=== PATIENT | female | born 1965 | race Hispanic/Latino ===

== ENCOUNTER 2020-07-31 18:03 | Inpatient (IN) | payer MEDICAID ==
[2020-07-31] MEDS ORDERED: MELATONIN 5 MG TAB PO PRN (18:20)
[2020-07-31] MEDS ORDERED: clonazePAM 0.5 MG TAB PO PRN (19:40)
[2020-07-31] MEDS ORDERED: traZODone 50 MG TAB PO SCH (22:00)
[2020-07-31] MEDS: traZODone 100 MG TAB PO SCH (23:22)
[2020-07-31] MEDS: MIRTAZAPINE 30 MG TAB PO SCH (23:22)
--- NOTE | 2020-08-01 08:16 | History and Physical Report ---
GP History & Physical - History of Present Illness Date of admission: 07/31/20 Date of Examination: 08/01/20 Reason for Admission: Danger to self, Failure of Outpatient Treatment History of Present Illness: Clint Sheridan is a 55y/o female patient who I initially treated on the medical floor, in which she was admitted for a florid UTI and hyponatremia. The patient initially presented to the ER from a [facility] with suicidal thoughts with plans to cut her wrist. It is documented that at that time the patient's counselor said she had been looking for razors to cut her wrist. The patient states she has been suffering depression for awhile, and misses her mother who about 6 years ago. The patient states she's always sad when thinking about her mother and states she feels like she's lost her father too because his health is not good. During my interview with the patient today, she is sitting in the dayroom off to herself. She is calm and cooperative. She is a/o x 3. She still verbalizes feeling depressed. The patient denies hallucinations when asked, but "not outside of my 's voice." She says she hears her husbands voice yelling at her and telling her she's "no good." The patient says "but I'll never be able to get rid of him. This has been on going with him." The patient expresses feeling suicidal and states she wants to cut her wrist. She denies any illicit drug use, or alcohol. The patient says she slept good and "still feels tired from all the medications last night." She says "I feel groggy as all get out." The patient states she uses nicotine but not everyday. She says she has a history of "bipolar and schizoafective disorder." PAST PSYCHIATRIC HISTORY Diagnoses: bipolar, schizoaffective disorder and multiple personality disorder Suicide attempts or Self-harm behavior: Yes multiple times Prior psychiatric hospitalizations: Yes Substance Abuse history: None reported Previous psychiatric medications tried: Multiple medication Outpatient treatment: [facility] PAST MEDICAL HISTORY: None reported Family Psychiatric History: None reported or documented SOCIAL HISTORY Marital Status: Living Arrangements: care home Employment Status: On SSI Access to guns/weapons: None reported Education: College dropout History of Abuse: None reported Legal History: Yes REVIEW OF SYSTEMS Constitutional: Negative for weight loss ENT: Negative for stridor Respiratory: Negative for cough or hemoptysis All other systems reviewed and are negative MENTAL STATUS EXAMINATION General Appearance and Behavior: Age appropriate, good hygiene, wearing appropriate clothes, good eye contact Cooperation: Participating/engaged Psychomotor Behavior: Psychomotor normal Mood: depressed Affect and affective range: Congruent with mood Thought Process: logical Thought Content: hopelessness Speech: Normal rate, volume and rhythm Suicidal Ideation: SI Homicidal Ideation: Denies HI Impulse Control: Impaired Insight and Judgment: Limited insight and judgment Memory: Normal Attention: Normal Orientation: Alert, oriented Assessment and Plan (1) MDD (major depressive disorder) Current Visit: Yes Status: Acute (2) Dysfunctional grieving Current Visit: Yes Status: Acute Treatment Plan Patient admitted for inpatient psychiatric evaluation, medication adjustment and close monitoring The patient's behavior, mood, sleep and appetite will be closely monitored. Patient enrolled in individual and group therapeutic sessions and encouraged to attend. Patient provided with a safe and structured environment. Patient's physical health needs will be addressed by the Hospitalist. Hospitalist Consulted Labs including CBC, CMP, Lipid profile and Hemoglobin A1C levels ordered for baseline reference Social Assessment will be completed and the Bottom Wheeler will work with patient and family to ensure a suitable and safe disposition Medication adjustment will be made as clinically indicated Hold home seroquel, the patient states she feels too groggy when waking up restart from floor Abilify 5mg po daily restart from floor Zoloft 50mg po daily Usual Wellness Religious/Preservation: - Start Trazodone 50 mg po QHS - Start Melatonin 5 mg po QHS to promote circadian rhythm - Start [place]-3 for brain health, reduce impulsivity, and as adjunctive treatment for mood disorder, continue upon discharge given overall benefits. - Start B1 prophylaxis with 200 mg po for 5 days The patient agreed on the treatment plan, understood the risk, benefit, alternative treatment, potential consequence of no treatment, and gave informed consent. Initial Certification I certify that the inpatient psychiatric services are required for treatment that could reasonably be expected to improve the patient's condition for depression, negative thoughts and suicidal ideation Estimated days: 7 Post hospital care: primary care provider, psychiatric provider The case was staffed with Dr. Aguilera Legal Status: Voluntary Reaction to Hospitalization: Accepting Medications and Allergies Allergies Allergy/AdvReac Type Severity Reaction Status Date / Time codeine Allergy Hives Verified 03/03/20 20:46 Penicillins Allergy Hives Verified 03/03/20 20:46 Home Medications Medication Instructions Recorded Confirmed Last Taken Type Divalproex ER [DepaKOTE ER] 1,500 mg PO QDAY 03/04/20 07/31/20 Unknown History Quetiapine Fumarate [SEROquel] 400 mg PO QHS 03/04/20 07/31/20 Unknown History clonazePAM [ Klonopin] 0.5 mg PO BID PRN 03/04/20 07/31/20 Unknown History Mirtazapine [Remeron] 45 mg PO QHS 07/28/20 07/31/20 Unknown History traZODone [Desyrel] 150 mg PO QHS 07/28/20 07/31/20 Unknown History Active Meds: Active Medications Clonazepam (Klonopin) 0.5 mg PO BID PRN PRN Reason: Anxiety Divalproex Sodium (Depakote Er) 1,500 mg PO QDAY [facility] Melatonin (Melatonin) 5 mg PO QHS PRN PRN Reason: Sleep Mirtazapine (Remeron) 45 mg PO QHS [facility] Last Admin: 07/31/20 23:22 Dose: 45 mg Documented by: Trazodone HCl (Desyrel) 150 mg PO QHS [facility] Last Admin: 07/31/20 23:22 Dose: 150 mg Documented by: Results - Results Labs/Vitals: Laboratory Last Values POC Glucose 95 mg/dL (70-105) 08/01/20 06:15 Last Vital Signs Temp 99.1 F 07/31/20 21:30 Pulse 88 07/31/20 21:30 Resp 20 07/31/20 21:30 BP 130/81 07/31/20 21:30 Pulse Ox 97 07/31/20 21:30 Physical Examination - Constitutional Vitals: Vital Signs Temp Pulse Resp BP Pulse Ox 99.1 F 88 20 130/81 97 07/31/20 21:30 07/31/20 21:30 07/31/20 21:30 07/31/20 21:30 07/31/20 21:30 Temperature -Last 24 Hours Temperature 99.1 F Mental Status Exam - Vital signs Last Vital Signs Temp 99.1 F 07/31/20 21:30 Pulse 88 07/31/20 21:30 Resp 20 07/31/20 21:30 BP 130/81 07/31/20 21:30 Pulse Ox 97 07/31/20 21:30 Physician Certification - Certification Statement Physician Certification Statement: This is an acknowledgement statement that CLINT SHERIDAN is a 55 year old F who requires inpatient psychiatric admission for treatment which could reasonably be expected to improve the patient's condition for Estimated period of time patient will need to remain in the hospital: [ ] Plan for post-hospital care: [ ]
[2020-08-01] MEDS: SERTRALINE 50 MG TAB PO SCH (09:28)
[2020-08-01] MEDS: ARIPiprazole 5 MG TAB PO SCH (09:28)
[2020-08-01] MEDS: DIVALPROEX ER 500 MG TAB PO SCH (09:28)
[2020-08-01 10:21] LABS: Basophils % (Auto) 0.4 % (0.0-1.8); Eosinophils # (Auto) 0.1 K/mm3 (0.0-0.4); Eosinophils % (Auto) 1.9 % (0.0-4.3); Hematocrit 43.2 % (30.3-42.9); Hemoglobin 14.6 gm/dl (10.1-14.3); Lymphocytes # (Auto) 1.3 K/mm3 (1.2-5.4); Lymphocytes % (Auto) 39.3 % (13.4-35.0); Mean Corpuscular HGB Conc 34 % (30-34); Mean Corpuscular Volume 96 fl (79-97); Monocytes # (Auto) 0.3 K/mm3 (0.0-0.8); Monocytes % (Auto) 10.3 % (0.0-7.3); Platelet Count 154 K/mm3 (140-440); Red Cell Distribution Width 14.7 % (13.2-15.2)
[2020-08-01 10:47] LABS: Alanine Aminotransferase 76 units/L (7-56); Albumin 3.8 g/dL (3.9-5); BUN/Creatinine Ratio 23; Blood Urea Nitrogen 18 mg/dL (7-17); Calcium 9.7 mg/dL (8.4-10.2); Hemolysis Index 10
--- NOTE | 2020-08-01 11:38 | Consultation ---
History of Present Illness - Reason for Consult Consult date: 08/01/20 Medical Management Requesting physician: RIMA BANSAL - History of Present Illness 55 YO Female with Obesity Hypoventilation Syndrome, HTN, Bipolar Disorder admitted to [facility] for Psychiatric stabilization. Patient seen and evaluated in the recreation room. Patient denies fever, chills, chest pain, palpitation, productive cough, skin rash, recent ill contacts, or known exposure to COVID-19. Patient resting comfortably. No reported nursing events. Past History Past Medical History: hypertension Past Surgical History: No surgical history, Other (Reviewed) Social history: single Family history: no significant family history Medications and Allergies Allergies Allergy/AdvReac Type Severity Reaction Status Date / Time codeine Allergy Hives Verified 03/03/20 20:46 Penicillins Allergy Hives Verified 03/03/20 20:46 Home Medications Medication Instructions Recorded Confirmed Last Taken Type Divalproex ER [DepaKOTE ER] 1,500 mg PO QDAY 03/04/20 07/31/20 Unknown History Quetiapine Fumarate [SEROquel] 400 mg PO QHS 03/04/20 07/31/20 Unknown History clonazePAM [ Klonopin] 0.5 mg PO BID PRN 03/04/20 07/31/20 Unknown History Mirtazapine [Remeron] 45 mg PO QHS 07/28/20 07/31/20 Unknown History traZODone [Desyrel] 150 mg PO QHS 07/28/20 07/31/20 Unknown History Active Meds: Active Medications Aripiprazole (Aripiprazole) 5 mg PO QDAY [facility] Last Admin: 08/01/20 09:28 Dose: 5 mg Documented by: Clonazepam (Klonopin) 0.5 mg PO BID PRN PRN Reason: Anxiety Divalproex Sodium (Depakote Er) 1,500 mg PO QDAY [facility] Last Admin: 08/01/20 09:28 Dose: 1,500 mg Documented by: Melatonin (Melatonin) 5 mg PO QHS PRN PRN Reason: Sleep Mirtazapine (Remeron) 45 mg PO QHS [facility] Last Admin: 07/31/20 23:22 Dose: 45 mg Documented by: Sertraline HCl (Zoloft) 50 mg PO QDAY [facility] Last Admin: 12/08/20 09:28 Dose: 50 mg Documented by: Trazodone HCl (Desyrel) 150 mg PO QHS [facility] Last Admin: 07/31/20 23:22 Dose: 150 mg Documented by: Review of Systems Constitutional: no weight loss, no fever, no sweats Ears, nose, mouth and throat: no ear pain, no ear discharge, no tinnitis, no nose pain, no nasal discharge Breasts: no change in shape, no swelling, no mass Cardiovascular: no chest pain, no palpitations Respiratory: no cough with sputum, no excessive sputum, no hemoptysis, no dyspnea on exertion Gastrointestinal: no nausea, no vomiting, no constipation Genitourinary Female: no pelvic pain, no flank pain, no dysuria, no urinary frequency, no urgency Rectal: no pain, no incontinence, no bleeding Musculoskeletal: no neck stiffness, no neck pain, no shooting arm pain, no arm numbness/tingling, no low back pain Integumentary: no rash, no pruritis, no redness, no sores, no wounds Neurological: no paralysis, no weakness, no parathesias, no numbness, no tingling, no seizures Psychiatric: no memory loss, no change in sleep habits, no sleep disturbances, no insomnia Endocrine: no cold intolerance, no polyphagia, no excessive thirst, no polyuria Hematologic/Lymphatic: no easy bruising, no easy bleeding Allergic/Immunologic: no urticaria, no allergic rhinitis, no wheezing Exam - Constitutional Vitals: Temp Pulse Resp BP Pulse Ox 98.6 F 94 H 18 128/82 96 08/01/20 08:33 08/01/20 08:33 08/01/20 08:33 08/01/20 08:33 08/01/20 08:33 General appearance: Present: no acute distress, obese - EENT Eyes: Present: PERRL ENT: hearing intact, clear oral mucosa - Neck Neck: Present: supple, normal ROM - Respiratory Respiratory effort: normal Respiratory: bilateral: CTA - Cardiovascular Heart Sounds: Present: S1 & S2. Absent: rub, click - Extremities Extremities: pulses symmetrical, No edema Peripheral Pulses: within normal limits - Abdominal General gastrointestinal: Present: soft, non-tender, non-distended, normal bowel sounds Female genitourinary: Present: normal - Integumentary Integumentary: Present: clear, warm, dry - Musculoskeletal Musculoskeletal: gait normal, strength equal bilaterally - Psychiatric Psychiatric: appropriate mood/affect, intact judgment & insight - Neurologic Neurologic: CNII-XII intact, moves all extremities Results - Labs CBC & Chem 7: 08/01/20 09:41 08/01/20 09:41 Labs: Abnormal lab results 07/31/20 08/01/20 08/01/20 Range/Units 23:33 09:41 09:41 WBC 3.2 L (4.5-11.0) K/mm3 Hgb 14.6 H (10.1-14.3) gm/dl Hct 43.2 H (30.3-42.9) % MCH 33 H (28-32) pg Lymph % (Auto) 39.3 H (13.4-35.0) % [place] % (Auto) 10.3 H (0.0-7.3) % Seg Neutrophils # 1.5 L (1.8-7.7) K/mm3 BUN 18 H (7-17) mg/dL Glucose 138 H (65-100) mg/dL POC Glucose 106 H (70-105) mg/dL ALT 76 H (7-56) units/L Albumin 3.8 L (3.9-5) g/dL Assessment and Plan - Patient Problems (1) HTN (hypertension) Current Visit: Yes Status: Acute Qualifiers: Hypertension type: essential hypertension Qualified Code(s): I10 - Essential (primary) hypertension Plan to address problem: Monitor blood pressure every shift. Patient normotensive at this time. (2) Hyponatremia Current Visit: Yes Status: Acute Plan to address problem: Hyponatremia resolved, continue current care. Limit free water intake to 8 glasses/day.
[2020-08-01] MEDS ORDERED: FLU VACC QUAD 2020-2021 (6 months +)/PF 60 0.5 ML SYRINGE IM ONE (12:00)
[2020-08-01] MEDS: traZODone 100 MG TAB PO SCH (21:43)
[2020-08-01] MEDS: MIRTAZAPINE 30 MG TAB PO SCH (21:43)
--- NOTE | 2020-08-02 07:58 | Progress Note ---
Subjective Date of service: 08/02/20 Principal diagnosis: Depression, SI Subjective Comment: During my interview with the patient today, she is lying in bed. She is oriented x 3. The patient says she is a "little less groggy waking up," since not taking the seroquel but says she still feels overly tired when waking up in the morning. The patient says her depression is better, and says she not as suicidal, but states "I still slightly am." She denies hallucinations of any kin. Reason for continued inpatient treatment: The patient has improved, and verbalizes a decrease in negative feelings. She does still have some passive thoughts of suicide. Will continue to treat and stabilize and plan for discharge in 1 or 2 days. REVIEW OF SYSTEMS Constitutional: Negative for weight loss ENT: Negative for stridor Respiratory: Negative for cough or hemoptysis All other systems reviewed and are negative MENTAL STATUS EXAMINATION General Appearance and Behavior: Age appropriate, good hygiene, wearing appropriate clothes, good eye contact Cooperation: Participating/engaged Psychomotor Behavior: Psychomotor normal Mood: "depressed, but better" Affect and affective range: Congruent with mood Thought Process: logical Thought Content: None Speech: Normal rate, volume and rhythm Suicidal Ideation: Passive Homicidal Ideation: Denies HI Hallucinations: Denies Delusions: None elicited Impulse Control: Limited Insight and Judgment: Limited insight and judgment Memory: Normal Attention: Normal Orientation: Alert, oriented Assessment and Plan (1) MDD (major depressive disorder) Current Visit: Yes Status: Acute (2) Dysfunctional grieving Current Visit: Yes Status: Acute Treatment Plan Patient admitted for inpatient psychiatric evaluation, medication adjustment and close monitoring The patient's behavior, mood, sleep and appetite will be closely monitored. Patient enrolled in individual and group therapeutic sessions and encouraged to attend. Patient provided with a safe and structured environment. Patient's physical health needs will be addressed by the Hospitalist. Hospitalist Consulted Labs including CBC, CMP, Lipid profile and Hemoglobin A1C levels ordered for baseline reference Social Assessment will be completed and the Deployment Technician will work with patient and family to ensure a suitable and safe disposition Medication adjustment will be made as clinically indicated Continue current regimen. No changes made today Usual Wellness Alevism/Preservation: - Start Trazodone 50 mg po QHS - Start Melatonin 5 mg po QHS to promote circadian rhythm - Start [place]-3 for brain health, reduce impulsivity, and as adjunctive treatment for mood disorder, continue upon discharge given overall benefits. - Start B1 prophylaxis with 200 mg po for 5 days The patient agreed on the treatment plan, understood the risk, benefit, alternative treatment, potential consequence of no treatment, and gave informed consent. Estimated days: 7 Post hospital care: primary care provider, psychiatric provider The case was staffed with Dr. Aguilera Medications and Allergies Allergies Allergy/AdvReac Type Severity Reaction Status Date / Time codeine Allergy Hives Verified 03/03/20 20:46 Penicillins Allergy Hives Verified 03/03/20 20:46 Home Medications Medication Instructions Recorded Confirmed Last Taken Type Divalproex ER [DepaKOTE ER] 1,500 mg PO QDAY 03/04/20 07/31/20 Unknown History Quetiapine Fumarate [SEROquel] 400 mg PO QHS 03/04/20 07/31/20 Unknown History clonazePAM [ Klonopin] 0.5 mg PO BID PRN 03/04/20 07/31/20 Unknown History Mirtazapine [Remeron] 45 mg PO QHS 07/28/20 07/31/20 Unknown History traZODone [Desyrel] 150 mg PO QHS 07/28/20 07/31/20 Unknown History Active Meds: Active Medications Aripiprazole (Aripiprazole) 5 mg PO QDAY [facility] Last Admin: 08/01/20 09:28 Dose: 5 mg Documented by: Clonazepam (Klonopin) 0.5 mg PO BID PRN PRN Reason: Anxiety Divalproex Sodium (Depakote Er) 1,500 mg PO QDAY [facility] Last Admin: 08/01/20 09:28 Dose: 1,500 mg Documented by: Melatonin (Melatonin) 5 mg PO QHS PRN PRN Reason: Sleep Mirtazapine (Remeron) 45 mg PO QHS [facility] Last Admin: 08/01/20 21:43 Dose: 45 mg Documented by: Sertraline HCl (Zoloft) 50 mg PO QDAY [facility] Last Admin: 08/01/20 09:28 Dose: 50 mg Documented by: Trazodone HCl (Desyrel) 150 mg PO QHS [facility] Last Admin: 08/01/20 21:43 Dose: 150 mg Documented by: Results - Results Labs/Vitals: Laboratory Last Values WBC 3.2 K/mm3 (4.5-11.0) L 08/01/20 09:41 RBC 4.50 M/mm3 (3.65-5.03) 08/01/20 09:41 Hgb 14.6 gm/dl (10.1-14.3) H 08/01/20 09:41 Hct 43.2 % (30.3-42.9) H 08/01/20 09:41 MCV 96 fl (79-97) 08/01/20 09:41 MCH 33 pg (28-32) H 08/01/20 09:41 MCHC 34 % (30-34) 08/01/20 09:41 RDW 14.7 % (13.2-15.2) 08/01/20 09:41 Plt Count 154 K/mm3 (140-440) 08/01/20 09:41 Lymph % (Auto) 39.3 % (13.4-35.0) H 08/01/20 09:41 [place] % (Auto) 10.3 % (0.0-7.3) H 08/01/20 09:41 Eos % (Auto) 1.9 % (0.0-4.3) 08/01/20 09:41 Baso % (Auto) 0.4 % (0.0-1.8) 08/01/20 09:41 Lymph # (Auto) 1.3 K/mm3 (1.2-5.4) 08/01/20 09:41 [place] # (Auto) 0.3 K/mm3 (0.0-0.8) 08/01/20 09:41 Eos # (Auto) 0.1 K/mm3 (0.0-0.4) 08/01/20 09:41 Baso # (Auto) 0.0 K/mm3 (0.0-0.1) 08/01/20 09:41 Seg Neutrophils % 48.1 % (40.0-70.0) 08/01/20 09:41 Seg Neutrophils # 1.5 K/mm3 (1.8-7.7) L 08/01/20 09:41 Sodium 138 mmol/L (137-145) D 08/01/20 09:41 Potassium 4.3 mmol/L (3.6-5.0) 08/01/20 09:41 Chloride 103.3 mmol/L (98-107) 08/01/20 09:41 Carbon Dioxide 24 mmol/L (22-30) 08/01/20 09:41 Anion Gap 15 mmol/L 08/01/20 09:41 BUN 18 mg/dL (7-17) H 08/01/20 09:41 Creatinine 0.8 mg/dL (0.6-1.2) 08/01/20 09:41 Estimated GFR > 60 ml/min 08/01/20 09:41 BUN/Creatinine Ratio 23 % 08/01/20 09:41 Glucose 138 mg/dL (65-100) H 08/01/20 09:41 POC Glucose 134 mg/dL (70-105) H 08/01/20 20:09 Calcium 9.7 mg/dL (8.4-10.2) 08/01/20 09:41 Total Bilirubin 0.30 mg/dL (0.1-1.2) 08/01/20 09:41 AST 40 units/L (5-40) 08/01/20 09:41 ALT 76 units/L (7-56) H 08/01/20 09:41 Alkaline Phosphatase 91 units/L (35-129) 08/01/20 09:41 Total Protein 7.2 g/dL (6.3-8.2) D 08/01/20 09:41 Albumin 3.8 g/dL (3.9-5) L 08/01/20 09:41 Albumin/Globulin Ratio 1.1 % 08/01/20 09:41 TSH 1.240 mlU/mL (0.270-4.200) 08/01/20 09:41 Last Vital Signs Temp 99.0 F 08/01/20 22:00 Pulse 99 H 08/01/20 22:00 Resp 20 08/02/20 00:07 BP 147/85 08/01/20 22:00 Pulse Ox 96 08/02/20 00:48
[2020-08-02] MEDS: DIVALPROEX ER 500 MG TAB PO SCH (10:05)
[2020-08-02] MEDS: SERTRALINE 50 MG TAB PO SCH (10:06)
[2020-08-02] MEDS: ARIPiprazole 5 MG TAB PO SCH (10:06)
[2020-08-02] MEDS ORDERED: FLU VACC QUAD 2020-2021 (6 months +)/PF 60 0.5 ML SYRINGE IM ONE (12:00)
[2020-08-02] MEDS: traZODone 100 MG TAB PO SCH (21:21)
[2020-08-02] MEDS: MIRTAZAPINE 30 MG TAB PO SCH (21:22)
--- NOTE | 2020-08-03 08:03 | Progress Note ---
Subjective Date of service: 08/03/20 Principal diagnosis: Depression, SI Subjective Comment: During my interview with the patient today, she is lying in bed. She is oriented x 3. She says she is trying to get up and going but feels like she is taking too much medication at night. The patient says she is still "severely groggy waking up." She verbalizes slight suicidal thoughts but says she knows her parents would not like it if she did something like that. The patient says she wouldn't carry out with any of those thoughts. She denies hallucinations of any kind. Reason for continued inpatient treatment: The patient has improved, and verbalizes a decrease in negative feelings. She does still have some passive thoughts of suicide. Will continue to treat and stabilize and plan for discharge in 1 or 2 days. REVIEW OF SYSTEMS Constitutional: Negative for weight loss ENT: Negative for stridor Respiratory: Negative for cough or hemoptysis All other systems reviewed and are negative MENTAL STATUS EXAMINATION General Appearance and Behavior: Age appropriate, good hygiene, wearing appropriate clothes, good eye contact Cooperation: Participating/engaged Psychomotor Behavior: Psychomotor normal Mood: "depressed, but better" Affect and affective range: Congruent with mood Thought Process: logical Thought Content: None Speech: Normal rate, volume and rhythm Suicidal Ideation: Passive Homicidal Ideation: Denies HI Hallucinations: Denies Delusions: None elicited Impulse Control: Limited Insight and Judgment: Limited insight and judgment Memory: Normal Attention: Normal Orientation: Alert, oriented Assessment and Plan (1) MDD (major depressive disorder) Current Visit: Yes Status: Acute (2) Dysfunctional grieving Current Visit: Yes Status: Acute Treatment Plan Patient admitted for inpatient psychiatric evaluation, medication adjustment and close monitoring The patient's behavior, mood, sleep and appetite will be closely monitored. Patient enrolled in individual and group therapeutic sessions and encouraged to attend. Patient provided with a safe and structured environment. Patient's physical health needs will be addressed by the Hospitalist. Hospitalist Consulted Labs including CBC, CMP, Lipid profile and Hemoglobin A1C levels ordered for baseline reference Social Assessment will be completed and the Product Distribution Specialist will work with patient and family to ensure a suitable and safe disposition Medication adjustment will be made as clinically indicated Decrease Trazodone 75mg po qhs to prevent daytime grogginess Usual Wellness Quaker/Preservation: - Start Trazodone 50 mg po QHS - Start Melatonin 5 mg po QHS to promote circadian rhythm - Start [place]-3 for brain health, reduce impulsivity, and as adjunctive treatment for mood disorder, continue upon discharge given overall benefits. - Start B1 prophylaxis with 200 mg po for 5 days The patient agreed on the treatment plan, understood the risk, benefit, alternative treatment, potential consequence of no treatment, and gave informed consent. Estimated days: 1 Post hospital care: primary care provider, psychiatric provider The case was staffed with Dr. Aguilera Medications and Allergies Allergies Allergy/AdvReac Type Severity Reaction Status Date / Time codeine Allergy Hives Verified 03/03/20 20:46 Penicillins Allergy Hives Verified 03/03/20 20:46 Home Medications Medication Instructions Recorded Confirmed Last Taken Type Divalproex ER [DepaKOTE ER] 1,500 mg PO QDAY 03/04/20 07/31/20 Unknown History Quetiapine Fumarate [SEROquel] 400 mg PO QHS 03/04/20 07/31/20 Unknown History clonazePAM [ Klonopin] 0.5 mg PO BID PRN 03/04/20 07/31/20 Unknown History Mirtazapine [Remeron] 45 mg PO QHS 07/28/20 07/31/20 Unknown History traZODone [Desyrel] 150 mg PO QHS 07/28/20 07/31/20 Unknown History Active Meds: Active Medications Aripiprazole (Aripiprazole) 5 mg PO QDAY [facility] Last Admin: 08/02/20 10:06 Dose: 5 mg Documented by: Clonazepam (Klonopin) 0.5 mg PO BID PRN PRN Reason: Anxiety Divalproex Sodium (Depakote Er) 1,500 mg PO QDAY [facility] Last Admin: 08/02/20 10:05 Dose: 1,500 mg Documented by: Melatonin (Melatonin) 5 mg PO QHS PRN PRN Reason: Sleep Mirtazapine (Remeron) 45 mg PO QHS [facility] Last Admin: 08/02/20 21:22 Dose: 45 mg Documented by: Sertraline HCl (Zoloft) 50 mg PO QDAY [facility] Last Admin: 08/02/20 10:06 Dose: 50 mg Documented by: Trazodone HCl (Desyrel) 150 mg PO QHS [facility] Last Admin: 08/02/20 21:21 Dose: 150 mg Documented by: Results - Results Labs/Vitals: Laboratory Last Values WBC 3.2 K/mm3 (4.5-11.0) L 08/01/20 09:41 RBC 4.50 M/mm3 (3.65-5.03) 08/01/20 09:41 Hgb 14.6 gm/dl (10.1-14.3) H 08/01/20 09:41 Hct 43.2 % (30.3-42.9) H 08/01/20 09:41 MCV 96 fl (79-97) 08/01/20 09:41 MCH 33 pg (28-32) H 08/01/20 09:41 MCHC 34 % (30-34) 08/01/20 09:41 RDW 14.7 % (13.2-15.2) 08/01/20 09:41 Plt Count 154 K/mm3 (140-440) 08/01/20 09:41 Lymph % (Auto) 39.3 % (13.4-35.0) H 08/01/20 09:41 [place] % (Auto) 10.3 % (0.0-7.3) H 08/01/20 09:41 Eos % (Auto) 1.9 % (0.0-4.3) 08/01/20 09:41 Baso % (Auto) 0.4 % (0.0-1.8) 08/01/20 09:41 Lymph # (Auto) 1.3 K/mm3 (1.2-5.4) 08/01/20 09:41 [place] # (Auto) 0.3 K/mm3 (0.0-0.8) 08/01/20 09:41 Eos # (Auto) 0.1 K/mm3 (0.0-0.4) 08/01/20 09:41 Baso # (Auto) 0.0 K/mm3 (0.0-0.1) 08/01/20 09:41 Seg Neutrophils % 48.1 % (40.0-70.0) 08/01/20 09:41 Seg Neutrophils # 1.5 K/mm3 (1.8-7.7) L 08/01/20 09:41 Sodium 138 mmol/L (137-145) D 08/01/20 09:41 Potassium 4.3 mmol/L (3.6-5.0) 08/01/20 09:41 Chloride 103.3 mmol/L (98-107) 08/01/20 09:41 Carbon Dioxide 24 mmol/L (22-30) 08/01/20 09:41 Anion Gap 15 mmol/L 08/01/20 09:41 BUN 18 mg/dL (7-17) H 08/01/20 09:41 Creatinine 0.8 mg/dL (0.6-1.2) 08/01/20 09:41 Estimated GFR > 60 ml/min 08/01/20 09:41 BUN/Creatinine Ratio 23 % 08/01/20 09:41 Glucose 138 mg/dL (65-100) H 08/01/20 09:41 POC Glucose 109 mg/dL (70-105) H 08/02/20 07:58 Calcium 9.7 mg/dL (8.4-10.2) 08/01/20 09:41 Total Bilirubin 0.30 mg/dL (0.1-1.2) 08/01/20 09:41 AST 40 units/L (5-40) 08/01/20 09:41 ALT 76 units/L (7-56) H 08/01/20 09:41 Alkaline Phosphatase 91 units/L (35-129) 08/01/20 09:41 Total Protein 7.2 g/dL (6.3-8.2) D 08/01/20 09:41 Albumin 3.8 g/dL (3.9-5) L 08/01/20 09:41 Albumin/Globulin Ratio 1.1 % 08/01/20 09:41 TSH 1.240 mlU/mL (0.270-4.200) 08/01/20 09:41 Last Vital Signs Temp 98.4 F 08/02/20 22:00 Pulse 100 H 08/02/20 22:00 Resp 18 08/02/20 22:00 BP 152/82 08/02/20 22:00 Pulse Ox 99 08/02/20 22:00
[2020-08-03] MEDS: DIVALPROEX ER 500 MG TAB PO SCH (11:56)
[2020-08-03] MEDS: SERTRALINE 50 MG TAB PO SCH (11:57)
[2020-08-03] MEDS: ARIPiprazole 5 MG TAB PO SCH (11:57)
[2020-08-03] MEDS: MIRTAZAPINE 30 MG TAB PO SCH (21:33)
[2020-08-03] MEDS ORDERED: traZODone 50 MG TAB PO SCH (22:00)
--- NOTE | 2020-08-04 07:30 | Progress Note ---
Subjective Date of service: 08/04/20 Principal diagnosis: Depression, SI Subjective Comment: Psych Nurse: Patient slept late and requested her medications late. She interacted appropriately. Patient is medication compliant. She denies si/hi/ah/vh. During the evening she continued to interact well. She was medication compliant. Will continue to monitor patient for safety. Psych Progress Patient reports she didnt not want to eat breakfast today because she is not hungry and its not related to poor appetite. She reports doing pretty good, slept like a baby all night thanks to the medications, and reports feeling good this AM. She say rosy is ready to go back to her [facility] once transport is arranged. Reason for continued inpatient treatment: The patient has improved, and verbalizes a decrease in negative feelings. She does still have some passive thoughts of suicide. Will continue to treat and stabilize and plan for discharge in 1 or 2 days. REVIEW OF SYSTEMS Constitutional: Negative for weight loss ENT: Negative for stridor Respiratory: Negative for cough or hemoptysis All other systems reviewed and are negative MENTAL STATUS EXAMINATION General Appearance and Behavior: Age appropriate, good hygiene, wearing appropriate clothes, good eye contact Cooperation: Participating/engaged Psychomotor Behavior: Psychomotor normal Mood: "feels okay" Affect and affective range: Congruent with mood Thought Process: logical Thought Content: None Speech: Normal rate, volume and rhythm Suicidal Ideation: denies Homicidal Ideation: Denies HI Hallucinations: Denies Delusions: None elicited Impulse Control: Limited Insight and Judgment: Limited insight and judgment Memory: Normal Attention: Normal Orientation: Alert, oriented Assessment and Plan (1) MDD (major depressive disorder) Current Visit: Yes Status: Acute (2) Dysfunctional grieving Current Visit: Yes Status: Acute Treatment Plan Patient admitted for inpatient psychiatric evaluation, medication adjustment and close monitoring The patient's behavior, mood, sleep and appetite will be closely monitored. Patient enrolled in individual and group therapeutic sessions and encouraged to attend. Patient provided with a safe and structured environment. Patient's physical health needs will be addressed by the Hospitalist. Hospitalist Consulted Labs including CBC, CMP, Lipid profile and Hemoglobin A1C levels ordered for baseline reference Social Assessment will be completed and the Nurse Anesthetist will work with patient and family to ensure a suitable and safe disposition Medication adjustment will be made as clinically indicated No medication changes The patient agreed on the treatment plan, understood the risk, benefit, alternative treatment, potential consequence of no treatment, and gave informed consent. Estimated days: 1 Post hospital care: primary care provider, psychiatric provider The case was staffed with Dr. Aguilera Medications and Allergies Allergies Allergy/AdvReac Type Severity Reaction Status Date / Time codeine Allergy Hives Verified 03/03/20 20:46 Penicillins Allergy Hives Verified 03/03/20 20:46 Home Medications Medication Instructions Recorded Confirmed Last Taken Type Divalproex ER [Depakote ER] 1,500 mg PO QDAY 03/04/20 07/31/20 Unknown History clonazePAM [KlonoPIN] 0.5 mg PO BID PRN 03/04/20 07/31/20 Unknown History Mirtazapine [Remeron] 45 mg PO QHS 07/28/20 07/31/20 Unknown History ARIPiprazole 5 mg PO QDAY #30 tablet 08/03/20 Unknown Rx Melatonin [Melatonin 5MG TAB] 5 mg PO QHS PRN #30 tablet 08/03/20 Unknown Rx Sertraline [Zoloft] 50 mg PO QDAY #30 tablet 08/03/20 Unknown Rx traZODone [Desyrel] 75 mg PO QHS #45 tablet 08/03/20 Unknown Rx Active Meds: Active Medications Aripiprazole (Aripiprazole) 5 mg PO QDAY [facility] Last Admin: 08/03/20 11:57 Dose: 5 mg Documented by: Clonazepam (Klonopin) 0.5 mg PO BID PRN PRN Reason: Anxiety Last Admin: 08/03/20 22:15 Dose: 0.5 mg Documented by: Divalproex Sodium (Depakote Er) 1,500 mg PO QDAY [facility] Last Admin: 08/03/20 11:56 Dose: 1,500 mg Documented by: Melatonin (Melatonin) 5 mg PO QHS PRN PRN Reason: Sleep Mirtazapine (Remeron) 45 mg PO QHS [facility] Last Admin: 08/03/20 21:33 Dose: 45 mg Documented by: Sertraline HCl (Zoloft) 50 mg PO QDAY [facility] Last Admin: 08/03/20 11:57 Dose: 50 mg Documented by: Trazodone HCl (Trazodone 50 Mg Tab) 75 mg PO QHS [facility] Last Admin: 08/03/20 21:31 Dose: 75 mg Documented by: Results - Results Labs/Vitals: Laboratory Last Values WBC 3.2 K/mm3 (4.5-11.0) L 08/01/20 09:41 RBC 4.50 M/mm3 (3.65-5.03) 08/01/20 09:41 Hgb 14.6 gm/dl (10.1-14.3) H 08/01/20 09:41 Hct 43.2 % (30.3-42.9) H 08/01/20 09:41 MCV 96 fl (79-97) 08/01/20 09:41 MCH 33 pg (28-32) H 08/01/20 09:41 MCHC 34 % (30-34) 08/01/20 09:41 RDW 14.7 % (13.2-15.2) 08/01/20 09:41 Plt Count 154 K/mm3 (140-440) 08/01/20 09:41 Lymph % (Auto) 39.3 % (13.4-35.0) H 08/01/20 09:41 [place] % (Auto) 10.3 % (0.0-7.3) H 08/01/20 09:41 Eos % (Auto) 1.9 % (0.0-4.3) 08/01/20 09:41 Baso % (Auto) 0.4 % (0.0-1.8) 08/01/20 09:41 Lymph # (Auto) 1.3 K/mm3 (1.2-5.4) 08/01/20 09:41 [place] # (Auto) 0.3 K/mm3 (0.0-0.8) 08/01/20 09:41 Eos # (Auto) 0.1 K/mm3 (0.0-0.4) 08/01/20 09:41 Baso # (Auto) 0.0 K/mm3 (0.0-0.1) 08/01/20 09:41 Seg Neutrophils % 48.1 % (40.0-70.0) 08/01/20 09:41 Seg Neutrophils # 1.5 K/mm3 (1.8-7.7) L 08/01/20 09:41 Sodium 138 mmol/L (137-145) D 08/01/20 09:41 Potassium 4.3 mmol/L (3.6-5.0) 08/01/20 09:41 Chloride 103.3 mmol/L (98-107) 08/01/20 09:41 Carbon Dioxide 24 mmol/L (22-30) 08/01/20 09:41 Anion Gap 15 mmol/L 08/01/20 09:41 BUN 18 mg/dL (7-17) H 08/01/20 09:41 Creatinine 0.8 mg/dL (0.6-1.2) 08/01/20 09:41 Estimated GFR > 60 ml/min 08/01/20 09:41 BUN/Creatinine Ratio 23 % 08/01/20 09:41 Glucose 138 mg/dL (65-100) H 08/01/20 09:41 POC Glucose 109 mg/dL (70-105) H 08/02/20 07:58 Calcium 9.7 mg/dL (8.4-10.2) 08/01/20 09:41 Total Bilirubin 0.30 mg/dL (0.1-1.2) 08/01/20 09:41 AST 40 units/L (5-40) 08/01/20 09:41 ALT 76 units/L (7-56) H 08/01/20 09:41 Alkaline Phosphatase 91 units/L (35-129) 08/01/20 09:41 Total Protein 7.2 g/dL (6.3-8.2) D 08/01/20 09:41 Albumin 3.8 g/dL (3.9-5) L 08/01/20 09:41 Albumin/Globulin Ratio 1.1 % 08/01/20 09:41 TSH 1.240 mlU/mL (0.270-4.200) 08/01/20 09:41 Last Vital Signs Temp 98.0 F 08/03/20 19:55 Pulse 95 H 08/03/20 19:55 Resp 18 08/03/20 19:55 BP 158/84 08/03/20 19:55 Pulse Ox 99 08/03/20 19:55
[2020-08-04 12:02] VITALS: BP 167/91
[2020-08-04] MEDS: DIVALPROEX ER 500 MG TAB PO SCH (12:02)
[2020-08-04] MEDS: ARIPiprazole 5 MG TAB PO SCH (12:02)
[2020-08-04] MEDS: SERTRALINE 50 MG TAB PO SCH (12:03)
--- NOTE | 2020-08-04 12:37 | Discharge Summary ---
Providers - Providers Date of Admission: 07/31/20 22:59 Date of discharge: 08/04/20 Attending physician: RIMA BANSAL MD 07/31/20 18:16 Consult to Physician [CONS] Routine Comment: Consulting Provider: YUE ALMAGUER Physician Instructions: Reason For Exam: manage medical conditions Primary care physician: SPRING TACKER Hospitalization Reason for admission: Danger to self Condition: Good Hospital course: The patient was provided inpatient psychiatric treatment with safe and supportive environment, group/individual therapy, psychiatric medication, medication adjustment, adverse effect monitor, medical evaluation, medical treatment, social service assessment, social support meeting, placement ass essment and psycho-education. The patients mood, cognition, behavior, motivation, compliance to treatment and appreciation on family/social support are improved and stabilized. At the time of discharge, the patient had no suicidal ideas, no homicidal ideas, no aggressive thoughts, no endangering behavior and no debilitating adverse effects. The patient agareed on the treatment plan, understood the risk, benefit, alternative treatment, potential consequence of no treatment, and gave informed consent. Disposition: DC-01 TO HOME OR SELFCARE Allergies/Adverse Reactions: Allergies codeine Allergy (Verified 03/03/20 20:46) Hives Penicillins Allergy (Verified 03/03/20 20:46) Hives Vital Signs: Last Vital Signs Temp 98.9 F 08/04/20 09:36 Pulse 101 H 08/04/20 09:36 Resp 18 08/04/20 09:36 BP 167/91 08/04/20 09:36 Pulse Ox 96 08/04/20 09:36 Last Lab: Laboratory Last Values WBC 3.2 K/mm3 (4.5-11.0) L 08/01/20 09:41 RBC 4.50 M/mm3 (3.65-5.03) 08/01/20 09:41 Hgb 14.6 gm/dl (10.1-14.3) H 08/01/20 09:41 Hct 43.2 % (30.3-42.9) H 08/01/20 09:41 MCV 96 fl (79-97) 08/01/20 09:41 MCH 33 pg (28-32) H 08/01/20 09:41 MCHC 34 % (30-34) 08/01/20 09:41 RDW 14.7 % (13.2-15.2) 08/01/20 09:41 Plt Count 154 K/mm3 (140-440) 08/01/20 09:41 Lymph % (Auto) 39.3 % (13.4-35.0) H 08/01/20 09:41 [place] % (Auto) 10.3 % (0.0-7.3) H 08/01/20 09:41 Eos % (Auto) 1.9 % (0.0-4.3) 08/01/20 09:41 Baso % (Auto) 0.4 % (0.0-1.8) 08/01/20 09:41 Lymph # (Auto) 1.3 K/mm3 (1.2-5.4) 08/01/20 09:41 [place] # (Auto) 0.3 K/mm3 (0.0-0.8) 08/01/20 09:41 Eos # (Auto) 0.1 K/mm3 (0.0-0.4) 08/01/20 09:41 Baso # (Auto) 0.0 K/mm3 (0.0-0.1) 08/01/20 09:41 Seg Neutrophils % 48.1 % (40.0-70.0) 08/01/20 09:41 Seg Neutrophils # 1.5 K/mm3 (1.8-7.7) L 08/01/20 09:41 Sodium 138 mmol/L (137-145) D 08/01/20 09:41 Potassium 4.3 mmol/L (3.6-5.0) 08/01/20 09:41 Chloride 103.3 mmol/L (98-107) 08/01/20 09:41 Carbon Dioxide 24 mmol/L (22-30) 08/01/20 09:41 Anion Gap 15 mmol/L 08/01/20 09:41 BUN 18 mg/dL (7-17) H 08/01/20 09:41 Creatinine 0.8 mg/dL (0.6-1.2) 08/01/20 09:41 Estimated GFR > 60 ml/min 08/01/20 09:41 BUN/Creatinine Ratio 23 % 08/01/20 09:41 Glucose 138 mg/dL (65-100) H 08/01/20 09:41 POC Glucose 111 mg/dL (70-105) H 08/04/20 07:57 Calcium 9.7 mg/dL (8.4-10.2) 08/01/20 09:41 Total Bilirubin 0.30 mg/dL (0.1-1.2) 08/01/20 09:41 AST 40 units/L (5-40) 08/01/20 09:41 ALT 76 units/L (7-56) H 08/01/20 09:41 Alkaline Phosphatase 91 units/L (35-129) 08/01/20 09:41 Total Protein 7.2 g/dL (6.3-8.2) D 08/01/20 09:41 Albumin 3.8 g/dL (3.9-5) L 08/01/20 09:41 Albumin/Globulin Ratio 1.1 % 08/01/20 09:41 TSH 1.240 mlU/mL (0.270-4.200) 08/01/20 09:41 Core Measure Documentation - Palliative Care Palliative Care/ Comfort Measures: Not Applicable - Core Measures Any of the following diagnoses?: none Exam - Constitutional Vitals: Temp Pulse Resp BP Pulse Ox 98.9 F 101 H 18 167/91 96 08/04/20 09:36 08/04/20 09:36 08/04/20 09:36 08/04/20 09:36 08/04/20 09:36 General appearance: Present: no acute distress - EENT Eyes: Present: PERRL, EOM intact ENT: hearing intact, clear oral mucosa - Neck Neck: Present: supple, normal ROM - Respiratory Respiratory effort: normal - Abdominal Female genitourinary: Present: deferred - Rectal Rectal Exam: deferred - Integumentary Integumentary: Present: clear, warm, dry Plan Care Plan Goals: The patient was provided inpatient psychiatric treatment with safe and supportive environment, group/individual therapy, psychiatric medication, medication adjustment, adverse effect monitor, medical evaluation, medical treatment, social service assessment, social support meeting, placement assessment and psycho-education. The patients mood, cognition, behavior, motivation, compliance to treatment and appreciation on family/social support are improved and stabilized. At the time of discharge, the patient had no suicidal ideas, no homicidal ideas, no aggressive thoughts, no endangering behavior and no debilitating adverse effects. The patient agareed on the treatment plan, understood the risk, benefit, alternative treatment, potential consequence of no treatment, and gave informed consent. Goals: Maintain good and stable mental health. Plan of Treatment: The patient should be compliant with medications, not to use drugs and not to drink alcohol. The patient understands that if suicidal ideas, homicidal ideas, or any endangering thoughts arise, the patient should immediately seek for emergent assistance including but not limited to crisis hot line and emergency room. Follow up with outpatient Psychiatrist and PCP within 7 - 14 days of discharge. Follow up with: PRIMARY CARE,MD [Primary Care Provider] - 7 Days Prescriptions: traZODone [Desyrel] 75 mg PO QHS #45 tablet Melatonin [Melatonin 5MG TAB] 5 mg PO QHS PRN #30 tablet PRN Reason: Sleep ARIPiprazole 5 mg PO QDAY #30 tablet Sertraline [Zoloft] 50 mg PO QDAY #30 tablet
--- NOTE | 2020-08-04 16:41 | Progress Note ---
Assessment and Plan - Patient Problems (1) HTN (hypertension) Current Visit: Yes Status: Acute Qualifiers: Hypertension type: essential hypertension Qualified Code(s): I10 - Essential (primary) hypertension Plan to address problem: Monitor blood pressure every shift. Patient normotensive at this time. (2) Hyponatremia Current Visit: Yes Status: Acute Plan to address problem: Hyponatremia resolved, continue current care. Limit free water intake to 8 glasses/day. (3) Migraine headache Current Visit: Yes Status: Acute Qualifiers: Intractability: not intractable Plan to address problem: Fioricet, supportive care, History Interval history: 55 YO Female with Obesity Hypoventilation Syndrome, HTN, Bipolar Disorder admitted to [facility] for Psychiatric stabilization. Patient seen and evaluated in the recreation room. Patient complains of migraine headache. Patient otherwise resting comfortably. No reported nursing events. Hospitalist Physical - Constitutional Vitals: Temp Pulse Resp BP Pulse Ox 98.9 F 101 H 18 167/91 96 08/04/20 09:36 08/04/20 09:36 08/04/20 09:36 08/04/20 09:36 08/04/20 09:36 General appearance: Present: no acute distress, obese - EENT Eyes: Present: PERRL, EOM intact ENT: hearing intact - Respiratory Respiratory effort: normal Respiratory: bilateral: CTA - Cardiovascular Rhythm: regular Heart Sounds: Present: S1 & S2 - Extremities Extremities: no ischemia Peripheral Pulses: within normal limits - Abdominal General gastrointestinal: soft, non-tender, non-distended - Integumentary Integumentary: Present: clear, dry - Psychiatric Psychiatric: cooperative - Neurologic Neurologic: CNII-XII intact Results - Labs CBC & Chem 7: 08/01/20 09:41 08/01/20 09:41 Labs: Laboratory Last Values WBC 3.2 K/mm3 (4.5-11.0) L 08/01/20 09:41 RBC 4.50 M/mm3 (3.65-5.03) 08/01/20 09:41 Hgb 14.6 gm/dl (10.1-14.3) H 08/01/20 09:41 Hct 43.2 % (30.3-42.9) H 08/01/20 09:41 MCV 96 fl (79-97) 08/01/20 09:41 MCH 33 pg (28-32) H 08/01/20 09:41 MCHC 34 % (30-34) 08/01/20 09:41 RDW 14.7 % (13.2-15.2) 08/01/20 09:41 Plt Count 154 K/mm3 (140-440) 08/01/20 09:41 Lymph % (Auto) 39.3 % (13.4-35.0) H 08/01/20 09:41 [place] % (Auto) 10.3 % (0.0-7.3) H 08/01/20 09:41 Eos % (Auto) 1.9 % (0.0-4.3) 08/01/20 09:41 Baso % (Auto) 0.4 % (0.0-1.8) 08/01/20 09:41 Lymph # (Auto) 1.3 K/mm3 (1.2-5.4) 08/01/20 09:41 [place] # (Auto) 0.3 K/mm3 (0.0-0.8) 08/01/20 09:41 Eos # (Auto) 0.1 K/mm3 (0.0-0.4) 08/01/20 09:41 Baso # (Auto) 0.0 K/mm3 (0.0-0.1) 08/01/20 09:41 Seg Neutrophils % 48.1 % (40.0-70.0) 08/01/20 09:41 Seg Neutrophils # 1.5 K/mm3 (1.8-7.7) L 08/01/20 09:41 Sodium 138 mmol/L (137-145) D 08/01/20 09:41 Potassium 4.3 mmol/L (3.6-5.0) 08/01/20 09:41 Chloride 103.3 mmol/L (98-107) 08/01/20 09:41 Carbon Dioxide 24 mmol/L (22-30) 08/01/20 09:41 Anion Gap 15 mmol/L 08/01/20 09:41 BUN 18 mg/dL (7-17) H 08/01/20 09:41 Creatinine 0.8 mg/dL (0.6-1.2) 08/01/20 09:41 Estimated GFR > 60 ml/min 12/08/20 09:41 BUN/Creatinine Ratio 23 % 08/01/20 09:41 Glucose 138 mg/dL (65-100) H 08/01/20 09:41 POC Glucose 111 mg/dL (70-105) H 08/04/20 07:57 Calcium 9.7 mg/dL (8.4-10.2) 08/01/20 09:41 Total Bilirubin 0.30 mg/dL (0.1-1.2) 08/01/20 09:41 AST 40 units/L (5-40) 08/01/20 09:41 ALT 76 units/L (7-56) H 08/01/20 09:41 Alkaline Phosphatase 91 units/L (35-129) 08/01/20 09:41 Total Protein 7.2 g/dL (6.3-8.2) D 08/01/20 09:41 Albumin 3.8 g/dL (3.9-5) L 08/01/20 09:41 Albumin/Globulin Ratio 1.1 % 08/01/20 09:41 TSH 1.240 mlU/mL (0.270-4.200) 08/01/20 09:41 [place]/IV: Voiding Method Toilet Active Medications - Current Medications Current Medications: Generic Name Dose Route Start Last Admin Trade Name Freq PRN Reason Stop Dose Admin Acetaminophen/Butalbital/Caffeine 1 tab 08/04/20 16:39 Butalb/Acetaminophen/Caffeine Tab PO 08/04/20 16:40 ONCE ONE Aripiprazole 5 mg 08/01/20 10:00 08/04/20 12:02 Aripiprazole PO 5 mg QDAY CORINNA Administration Clonazepam 0.5 mg 07/31/20 19:40 08/03/20 22:15 Klonopin PO 0.5 mg BID PRN Administration Anxiety Divalproex Sodium 1,500 mg 08/01/20 10:00 08/04/20 12:02 Depakote Er PO 1,500 mg QDAY CORINNA Administration Melatonin 5 mg 07/31/20 18:20 Melatonin PO QHS PRN Sleep Mirtazapine 45 mg 07/31/20 22:00 08/03/20 21:33 Remeron PO 45 mg QHS CORINNA Administration Sertraline HCl 50 mg 08/01/20 10:00 08/04/20 12:03 Zoloft PO 50 mg QDAY CORINNA Administration Trazodone HCl 75 mg 08/03/20 22:00 08/03/20 21:31 Trazodone 50 Mg Tab PO 75 mg QHS CORINNA Administration
[2020-08-04] MEDS ORDERED: BUTALB/ACETAMINOPHEN/CAFFEINE TAB PO ONE (17:00)
== END 2020-08-04 18:15 | disposition home or self-care (01) | DRG 881 ==
LOC: UNDOADMIN 18:03 → 3A 18:03 → 5A 22:59
PROVIDERS: ADMIT Psychiatry & Neurology Psychiatry; ATTEND Psychiatry & Neurology Psychiatry
DX: F32.9 Major depressive disorder, single episode, unspecified (principal); E66.01 Morbid (severe) obesity due to excess calories; I10 Essential (primary) hypertension; G40.909 Epilepsy, unspecified, not intractable, without status epilepticus; Z68.41 Body mass index [BMI] 40.0-44.9, adult; Z88.5 Allergy status to narcotic agent; Z88.8 Allergy status to other drugs, medicaments and biological substances
CPT/HCPCS: 36415; 80053; 82962; 84443; 85025; 90686; G0378

== ENCOUNTER 2021-05-17 18:48 | Emergency (ER) | payer MEDICAID ==
--- NOTE | 2021-05-17 19:08 | Event Note ---
ED Screening Note Date of service: 05/17/21 Time: 19:05 ED Screening Note: pt is a 56 y/o w/f with hx of depression who presents for SI, Plan: drive my care over imbankment, states: I have been arguing with my mother all day and tired of it. pt denies cp, no sob, no n/v, no fever or chills, unknown medication regimen , non adherent This initial assessment/diagnostic orders/clinical plan/treatment(s) is/are subject to change based on patients health status, clinical progression and re-assessment by fellow clinical providers in the ED. Further treatment and workup at subsequent clinical providers discretion. Patient/guardian urged not to elope from the ED as their condition may be serious if not clinically assessed and managed. Initial orders include: Psych consult, cmp, cbc, ua, uds, tylenol, salicylate
[2021-05-17 19:25] LABS: Basophils % (Auto) 0.6 % (0.0-1.8); Eosinophils % (Auto) 0.7 % (0.0-4.3); Hematocrit 40.9 % (30.3-42.9); Hemoglobin 13.8 gm/dl (10.1-14.3); Lymphocytes # (Auto) 2.2 K/mm3 (1.2-5.4); Lymphocytes % (Auto) 37.2 % (13.4-35.0); Mean Corpuscular HGB Conc 34 % (30-34); Mean Corpuscular Volume 96 fl (79-97); Monocytes # (Auto) 0.4 K/mm3 (0.0-0.8); Monocytes % (Auto) 7.5 % (0.0-7.3); Platelet Count 122 K/mm3 (140-440); Red Blood Count 4.26 M/mm3 (3.65-5.03); Red Cell Distribution Width 16.4 % (13.2-15.2)
[2021-05-17 19:50] LABS: Alanine Aminotransferase 18 units/L (7-56); Albumin 4.1 g/dL (3.9-5); BUN/Creatinine Ratio 29; Blood Urea Nitrogen 23 mg/dL (7-17); Calcium 9.2 mg/dL (8.4-10.2); Hemolysis Index 19
--- NOTE | 2021-05-17 23:03 | Emergency Department Report ---
ED Psych HPI - General Chief Complaint: Altered Mental Status Stated Complaint: loss of memory Time Seen by Provider: 05/17/21 19:46 Source: patient Mode of arrival: Ambulatory - History of Present Illness Initial Comments: Patient is a 56-year-old female with past medical history of bipolar disorder and schizoaffective disorder who is presenting with suicidal ideations. Patient told by midlevel that she has been having thoughts of driving over an embankment. Is also states an argument with her mother all day. Spoke with the patient and she stated initially that she was "having trouble getting things together". Then patient started to have some tangential thought and started talking about walking to the [employer] and that at the end of the summer he is normally when her weight normalizes and that on the first day of school is when her grandparents adopted her. When asked directly while she was here she states he was thinking about killing herself. States she is having trouble dealing with people. Patient states she lives in a [facility]iary but then started singing after stating that she was in a penitentiary and was unable to get the name of the penitentiary from the patient. - Related Data Home Medications Medication Instructions Recorded Confirmed Last Taken Divalproex ER [Depakote ER] 1,500 mg PO QDAY 03/04/20 07/31/20 Unknown clonazePAM [KlonoPIN] 0.5 mg PO BID PRN 03/04/20 07/31/20 Unknown Mirtazapine [Remeron] 45 mg PO QHS 07/28/20 07/31/20 Unknown Previous Rx's Medication Instructions Recorded Last Taken Type ARIPiprazole 5 mg PO QDAY #30 tablet 08/03/20 Unknown Rx Melatonin [Melatonin 5MG TAB] 5 mg PO QHS PRN #30 tablet 08/03/20 Unknown Rx Sertraline [Zoloft] 50 mg PO QDAY #30 tablet 08/03/20 Unknown Rx traZODone [Desyrel] 75 mg PO QHS #45 tablet 08/03/20 Unknown Rx Allergies Allergy/AdvReac Type Severity Reaction Status Date / Time codeine Allergy Hives Verified 05/17/21 18:51 Penicillins Allergy Hives Verified 05/17/21 18:51 ED Review of Systems ROS: Stated complaint: loss of memory Other details as noted in HPI Comment: All other systems reviewed and negative ED Past Medical Hx - Past Medical History Hx Hypertension: Yes Hx Diabetes: Yes Hx Seizures: No Hx Psychiatric Treatment: Yes (Biopolar, Schizoaffective disorder) - Surgical History Additional Surgical History: Hysterectomy - Social History Smoking Status: Current Every Day Smoker Substance Use Type: None - Medications Home Medications: Home Medications Medication Instructions Recorded Confirmed Last Taken Type Divalproex ER [Depakote ER] 1,500 mg PO QDAY 03/04/20 07/31/20 Unknown History clonazePAM [KlonoPIN] 0.5 mg PO BID PRN 03/04/20 07/31/20 Unknown History Mirtazapine [Remeron] 45 mg PO QHS 07/28/20 07/31/20 Unknown History ARIPiprazole 5 mg PO QDAY #30 tablet 08/03/20 Unknown Rx Melatonin [Melatonin 5MG TAB] 5 mg PO QHS PRN #30 tablet 08/03/20 Unknown Rx Sertraline [Zoloft] 50 mg PO QDAY #30 tablet 08/03/20 Unknown Rx traZODone [Desyrel] 75 mg PO QHS #45 tablet 08/03/20 Unknown Rx ED Physical Exam - General Limitations: No Limitations General appearance: alert, in no apparent distress - Head Head exam: Present: atraumatic, normocephalic - Eye Eye exam: Present: normal appearance, PERRL, EOMI - ENT ENT exam: Present: mucous membranes moist - Neck Neck exam: Present: normal inspection - Respiratory Respiratory exam: Present: normal lung sounds bilaterally. Absent: respiratory distress, wheezes, rales, rhonchi - Cardiovascular Cardiovascular Exam: Present: regular rate, normal rhythm, normal heart sounds. Absent: systolic murmur, diastolic murmur, rubs, gallop - GI/Abdominal GI/Abdominal exam: Present: soft, normal bowel sounds. Absent: distended, tenderness, guarding, rebound - Extremities Exam Extremities exam: Present: normal inspection - Back Exam Back exam: Present: normal inspection - Neurological Exam Neurological exam: Present: alert, oriented X3 - Psychiatric Psychiatric exam: Present: normal affect, normal mood - Skin Skin exam: Present: warm, dry, intact, normal color. Absent: rash ED Course Vital Signs 05/17/21 05/17/21 05/17/21 18:57 19:51 20:15 Temperature 98.2 F 98.5 F Pulse Rate 80 82 Respiratory 20 16 18 Rate Blood Pressure 128/72 111/41 [Right] O2 Sat by Pulse 100 98 98 Oximetry 05/17/21 21:14 Temperature Pulse Rate 81 Respiratory 18 Rate Blood Pressure 107/68 [Right] O2 Sat by Pulse 97 Oximetry - Reevaluation(s) Reevaluation #1: 05/17/21 23:02 Patient medically cleared for psychiatric evaluation at this time. 05/18/21 00:45 Still pending urinalysis ED Medical Decision Making - Lab Data Result diagrams: 05/17/21 19:10 05/17/21 19:10 Lab Results 05/17/21 05/17/21 05/17/21 Range/Units 19:10 19:10 19:10 WBC 5.8 (4.5-11.0) K/mm3 RBC 4.26 (3.65-5.03) M/mm3 Hgb 13.8 (10.1-14.3) gm/dl Hct 40.9 (30.3-42.9) % MCV 96 (79-97) fl MCH 32 (28-32) pg MCHC 34 (30-34) % RDW 16.4 H (13.2-15.2) % Plt Count 122 L (140-440) K/mm3 Lymph % (Auto) 37.2 H (13.4-35.0) % [place] % (Auto) 7.5 H (0.0-7.3) % Eos % (Auto) 0.7 (0.0-4.3) % Baso % (Auto) 0.6 (0.0-1.8) % Lymph # (Auto) 2.2 (1.2-5.4) K/mm3 [place] # (Auto) 0.4 (0.0-0.8) K/mm3 Eos # (Auto) 0.0 (0.0-0.4) K/mm3 Baso # (Auto) 0.0 (0.0-0.1) K/mm3 Seg Neutrophils % 54.0 (40.0-70.0) % Seg Neutrophils # 3.1 (1.8-7.7) K/mm3 Sodium 132 L (137-145) mmol/L Potassium 3.6 (3.6-5.0) mmol/L Chloride 96.8 L (98-107) mmol/L Carbon Dioxide 22 (22-30) mmol/L Anion Gap 17 mmol/L BUN 23 H (7-17) mg/dL Creatinine 0.8 (0.6-1.2) mg/dL Estimated GFR > 60 ml/min BUN/Creatinine Ratio 29 % Glucose 107 H (65-100) mg/dL Calcium 9.2 (8.4-10.2) mg/dL Total Bilirubin 0.30 (0.1-1.2) mg/dL AST 31 (5-40) units/L ALT 18 (7-56) units/L Alkaline Phosphatase 83 (35-129) units/L Total Protein 7.5 (6.3-8.2) g/dL Albumin 4.1 (3.9-5) g/dL Albumin/Globulin Ratio 1.2 % TSH 1.520 (0.270-4.200) mlU/mL Salicylates (2.8-20.0) mg/dL Acetaminophen (10.0-30.0) ug/mL 05/17/21 05/17/21 Range/Units 19:10 19:10 WBC (4.5-11.0) K/mm3 RBC (3.65-5.03) M/mm3 Hgb (10.1-14.3) gm/dl Hct (30.3-42.9) % MCV (79-97) fl MCH (28-32) pg MCHC (30-34) % RDW (13.2-15.2) % Plt Count (140-440) K/mm3 Lymph % (Auto) (13.4-35.0) % [place] % (Auto) (0.0-7.3) % Eos % (Auto) (0.0-4.3) % Baso % (Auto) (0.0-1.8) % Lymph # (Auto) (1.2-5.4) K/mm3 [place] # (Auto) (0.0-0.8) K/mm3 Eos # (Auto) (0.0-0.4) K/mm3 Baso # (Auto) (0.0-0.1) K/mm3 Seg Neutrophils % (40.0-70.0) % Seg Neutrophils # (1.8-7.7) K/mm3 Sodium (137-145) mmol/L Potassium (3.6-5.0) mmol/L Chloride (98-107) mmol/L Carbon Dioxide (22-30) mmol/L Anion Gap mmol/L BUN (7-17) mg/dL Creatinine (0.6-1.2) mg/dL Estimated GFR ml/min BUN/Creatinine Ratio % Glucose (65-100) mg/dL Calcium (8.4-10.2) mg/dL Total Bilirubin (0.1-1.2) mg/dL AST (5-40) units/L ALT (7-56) units/L Alkaline Phosphatase (35-129) units/L Total Protein (6.3-8.2) g/dL Albumin (3.9-5) g/dL Albumin/Globulin Ratio % TSH (0.270-4.200) mlU/mL Salicylates < 0.3 L (2.8-20.0) mg/dL Acetaminophen 5.0 L (10.0-30.0) ug/mL Critical care attestation.: If time is entered above; I have spent that time in minutes in the direct care of this critically ill patient, excluding procedure time. ED Disposition Condition: Stable Referrals: PRIMARY CARE, [Primary Care Provider] - 3-5 Days
--- NOTE | 2021-05-18 08:49 | Consultation ---
History of Present Illness - Reason for Consult Consult date: 05/18/21 Reason for consult: SI - History of Present Psychiatric Illness Per ER Note: Patient is a 56-year-old female with past medical history of bipolar disorder and schizoaffective disorder who is presenting with suicidal ideations. Patient told by midlevel that she has been having thoughts of driving over an embankment. Is also states an argument with her mother all day. Spoke with the patient and she stated initially that she was "having trouble getting things together". Then patient started to have some tangential thought and started talking about walking to the [email or web address] and that at the end of the summer he is normally when her weight normalizes and that on the first day of school is when her grandparents adopted her. When asked directly while she was here she states he was thinking about killing herself. States she is having trouble dealing with people. Patient states she lives in a long-term but then started singing after stating that she was in a long-term and was unable to get the name of the long-term from the patient. Aletha Sheridan is a 56y/o female patient with a history of bipolar disorder and schizoaffective disorder. The patient presents to the ER for suicidal thoughts, stating that she "is going to slit her throat tonight." She says she is "depressed and has been acting like I ain't go no sense." The patient denies hallucinations of any kind. The patient says she is ins a long-term and been letting the people get to her. The patient says she has been complaint on her meds and states she feel as if they have been working okay. PAST PSYCHIATRIC HISTORY Diagnoses: bipolar, schizoaffective disorder and multiple personality disorder Suicide attempts or Self-harm behavior: Yes multiple times Prior psychiatric hospitalizations: Yes Substance Abuse history: None reported Previous psychiatric medications tried: Multiple medication Outpatient treatment: [facility] PAST MEDICAL HISTORY: None reported Family Psychiatric History: None reported or documented SOCIAL HISTORY Marital Status: Living Arrangements: jail Employment Status: On SSI Access to guns/weapons: None reported Education: College dropout History of Abuse: None reported Legal History: Yes REVIEW OF SYSTEMS Constitutional: Negative for weight loss ENT: Negative for stridor Respiratory: Negative for cough or hemoptysis All other systems reviewed and are negative MENTAL STATUS EXAMINATION General Appearance and Behavior: Age appropriate, good hygiene, wearing appropriate clothes,, good eye contact Cooperation: Participating/engaged, but Guarded Psychomotor Behavior: Psychomotor normal Mood: depressed Affect and affective range: Congruent with mood and flat Thought Process: illogical Thought Content: helplessness Speech: Normal rate, volume and rhythm Intellectual Functioning: Average Suicidal Ideation: SI Homicidal Ideation: Denies HI Impulse Control: Impaired Insight and Judgment: Limited insight and judgment Memory: Normal Attention: Normal Orientation: Alert, Assessment and Plan (1) Bipolar Disorder Current Visit: Yes Status: Acute Treatment Plan Restarted home medications Risks, benefits and alternatives of medications discussed with the patient, questions answered and consent obtained from patient. PSYCHOTHERAPY: Supportive psychotherapy provided MEDICAL: Per primary team DELIRIUM PRECAUTIONS: Please re-orient patient frequently, keep lights on during the day, and minimize benzodiazepines and opiates as these medications could worsen patient's confusion. PIGMENT MAKING SUPERVISOR: DISPOSITION: Recommend acute inpatient psychiatric hospitalization at this time LEGAL STATUS: 1013 FOLLOW-UP: Will follow Thank you for the consult. Please contact with any questions and/or concerns. Medications and Allergies Allergies Allergy/AdvReac Type Severity Reaction Status Date / Time codeine Allergy Hives Verified 05/17/21 18:51 Penicillins Allergy Hives Verified 05/17/21 18:51 Home Medications Medication Instructions Recorded Confirmed Last Taken Type Divalproex ER [Depakote ER] 1,500 mg PO QDAY 03/04/20 07/31/20 Unknown History clonazePAM [KlonoPIN] 0.5 mg PO BID PRN 03/04/20 07/31/20 Unknown History Mirtazapine [Remeron] 45 mg PO QHS 07/28/20 07/31/20 Unknown History ARIPiprazole 5 mg PO QDAY #30 tablet 08/03/20 Unknown Rx Melatonin [Melatonin 5MG TAB] 5 mg PO QHS PRN #30 tablet 08/03/20 Unknown Rx Sertraline [Zoloft] 50 mg PO QDAY #30 tablet 08/03/20 Unknown Rx traZODone [Desyrel] 75 mg PO QHS #45 tablet 08/03/20 Unknown Rx Mental Status Exam - Vital signs Last Vital Signs Temp 98.4 F 05/18/21 02:02 Pulse 74 05/18/21 02:02 Resp 16 05/18/21 02:02 BP 139/63 05/18/21 02:02 Pulse Ox 99 05/18/21 02:02 Results Result Diagrams: 05/17/21 19:10 05/17/21 19:10 Abnormal lab results 05/17/21 05/17/21 05/17/21 Range/Units 19:10 19:10 19:10 RDW 16.4 H (13.2-15.2) % Plt Count 122 L (140-440) K/mm3 Lymph % (Auto) 37.2 H (13.4-35.0) % [place] % (Auto) 7.5 H (0.0-7.3) % Sodium 132 L (137-145) mmol/L Chloride 96.8 L (98-107) mmol/L BUN 23 H (7-17) mg/dL Glucose 107 H (65-100) mg/dL Salicylates < 0.3 L (2.8-20.0) mg/dL Acetaminophen (10.0-30.0) ug/mL 05/17/21 Range/Units 19:10 RDW (13.2-15.2) % Plt Count (140-440) K/mm3 Lymph % (Auto) (13.4-35.0) % [place] % (Auto) (0.0-7.3) % Sodium (137-145) mmol/L Chloride (98-107) mmol/L BUN (7-17) mg/dL Glucose (65-100) mg/dL Salicylates (2.8-20.0) mg/dL Acetaminophen 5.0 L (10.0-30.0) ug/mL All other labs normal.
[2021-05-18] MEDS ORDERED: SERTRALINE 50 MG TAB PO SCH (10:00)
[2021-05-18] MEDS ORDERED: DIVALPROEX ER 500 MG TAB PO SCH (10:00)
[2021-05-18] MEDS ORDERED: ARIPiprazole 5 MG TAB PO SCH (10:00)
[2021-05-18] MEDS ORDERED: ACETAMINOPHEN 500 MG TAB PO ONE (11:02)
--- NOTE | 2021-05-18 11:13 | Event Note ---
Date: 05/18/21 S: No events reported overnight O: Vital Signs - 8 hr 05/18/21 08:32 Temperature 98.4 F Pulse Rate 84 Respiratory 18 Rate Blood Pressure 134/68 [Right] O2 Sat by Pulse 98 Oximetry A: Bipolar disorder P: 1013/awaiting inpatient psych placement
[2021-05-18 20:00] VITALS: BP 129/78
[2021-05-18] MEDS ORDERED: traZODone 50 MG TAB PO SCH (22:00)
== END 2021-05-19 00:28 | disposition home or self-care (01) ==
LOC: ED 18:48
DX: R45.851 Suicidal ideations (principal); Z20.822 Contact with and (suspected) exposure to COVID-19; I10 Essential (primary) hypertension; E11.8 Type 2 diabetes mellitus with unspecified complications; F17.200 Nicotine dependence, unspecified, uncomplicated; Z88.5 Allergy status to narcotic agent; Z88.0 Allergy status to penicillin; Z86.59 Personal history of other mental and behavioral disorders; Z90.710 Acquired absence of both cervix and uterus
CPT/HCPCS: 36415; 80053; 84443; 85025; 99284; U0003; 80320; G0480

== ENCOUNTER 2021-05-18 20:28 | Inpatient (IN) | payer MEDICAID ==
[2021-05-19 05:32] LABS: Basophils % (Auto) 0.4 % (0.0-1.8); Hematocrit 38.7 % (30.3-42.9); Hemoglobin 13.3 gm/dl (10.1-14.3); Lymphocytes # (Auto) 1.9 K/mm3 (1.2-5.4); Lymphocytes % (Auto) 38.2 % (13.4-35.0); Mean Corpuscular HGB Conc 34 % (30-34); Mean Corpuscular Volume 94 fl (79-97); Monocytes # (Auto) 0.5 K/mm3 (0.0-0.8); Monocytes % (Auto) 10.8 % (0.0-7.3); Platelet Count 120 K/mm3 (140-440); Red Cell Distribution Width 15.8 % (13.2-15.2)
[2021-05-19 05:48] LABS: Alanine Aminotransferase 18 units/L (7-56); Albumin 3.5 g/dL (3.9-5); Blood Urea Nitrogen 20 mg/dL (7-17); Calcium 8.6 mg/dL (8.4-10.2); Chol/HDL Ratio 2.34 %; HDL Cholesterol 64 mg/dL (40-59); Hemolysis Index 6; LDL Cholesterol,Direct 61 mg/dL (50-130)
[2021-05-19 05:56] LABS: BUN/Creatinine Ratio 29
--- NOTE | 2021-05-19 08:44 | Consultation ---
History of Present Illness - Reason for Consult Consult date: 05/19/21 Reason for consult: SI - History of Present Psychiatric Illness Per ER Note: Patient is a 56-year-old female with past medical history of bipolar disorder and schizoaffective disorder who is presenting with suicidal ideations. Patient told by midlevel that she has been having thoughts of driving over an embankment. Is also states an argument with her mother all day. Spoke with the patient and she stated initially that she was "having trouble getting things together". Then patient started to have some tangential thought and started talking about walking to the [employer] and that at the end of the summer he is normally when her weight normalizes and that on the first day of school is when her grandparents adopted her. When asked directly while she was here she states he was thinking about killing herself. States she is having trouble dealing with people. Patient states she lives in a usp but then started singing after stating that she was in a usp and was unable to get the name of the usp from the patient. Aletha Sheridan is a 56y/o female patient with a history of bipolar disorder and schizoaffective disorder. I first evaluated this patient in the ER. Today she is sitting eating breakfast. She is hesitant to answer questions. She endorses SI. She says "because my omelet isn't right." The patient says "my mood is just not good today." She denies hallucinations. PAST PSYCHIATRIC HISTORY Diagnoses: bipolar, schizoaffective disorder and multiple personality disorder Suicide attempts or Self-harm behavior: Yes multiple times Prior psychiatric hospitalizations: Yes Substance Abuse history: None reported Previous psychiatric medications tried: Multiple medication Outpatient treatment: [facility] PAST MEDICAL HISTORY: None reported Family Psychiatric History: None reported or documented SOCIAL HISTORY Marital Status: Living Arrangements: [facility] Employment Status: On [employer] Access to guns/weapons: None reported Education: College dropout History of Abuse: None reported Legal History: Yes REVIEW OF SYSTEMS Constitutional: Negative for weight loss ENT: Negative for stridor Respiratory: Negative for cough or hemoptysis All other systems reviewed and are negative MENTAL STATUS EXAMINATION General Appearance and Behavior: Age appropriate, good hygiene, wearing appropriate clothes, good eye contact Cooperation: Participating/engaged, but Guarded Psychomotor Behavior: Psychomotor normal Mood: depressed Affect and affective range: Congruent with mood and flat Thought Process: illogical Thought Content: helplessness Speech: Normal rate, volume and rhythm Intellectual Functioning: Average Suicidal Ideation: SI Homicidal Ideation: Denies HI Impulse Control: Impaired Insight and Judgment: Limited insight and judgment Memory: Normal Attention: Normal Orientation: Alert, Assessment and Plan (1) Bipolar Disorder Current Visit: Yes Status: Acute Treatment Plan Patient admitted for inpatient psychiatric evaluation, medication adjustment and close monitoring The patient's behavior, mood, sleep and appetite will be closely monitored. Patient enrolled in individual and group therapeutic sessions and encouraged to attend. Patient provided with a safe and structured environment. Patient's physical health needs will be addressed by the Hospitalist. Hospitalist Consulted Labs including CBC, CMP, Lipid profile and Hemoglobin A1C levels ordered for baseline reference Valproic level Social Assessment will be completed and the Geophysical Observer will work with patient and family to ensure a suitable and safe disposition Medication adjustment will be made as clinically indicated Usual Wellness Anabaptism/Preservation: - Start Trazodone 50 mg po QHS & 50 mg po QHS PRN between 10 PM & 2 AM for insomnia - Start Melatonin 5 mg po QHS to promote circadian rhythm The patient agreed on the treatment plan, understood the risk, benefit, alternative treatment, potential consequence of no treatment, and gave informed consent. Estimated days: 5 Post hospital care: primary care provider, psychiatric provider Case staffed with Dr. Aguilera Medications and Allergies Allergies Allergy/AdvReac Type Severity Reaction Status Date / Time codeine Allergy Unknown Verified 05/18/21 23:48 Penicillins Allergy Unknown Verified 05/18/21 23:48 Home Medications Medication Instructions Recorded Confirmed Last Taken Type AtorvaSTATin [Lipitor] 20 mg PO HS 05/19/21 05/19/21 Unknown History Carbidopa/Levodopa 1 tab PO BID 05/19/21 05/19/21 Unknown History [Carbidopa-Levodopa 10-100 Tab] Divalproex ER [DepaKOTE ER] 1,500 mg PO HS 05/19/21 05/19/21 Unknown History Lisinopril [Zestril] 5 mg PO DAILY 05/19/21 05/19/21 Unknown History Loratadine [Allergy Relief] 10 mg PO DAILY 05/19/21 05/19/21 Unknown History Metoprolol [Lopressor TAB] 25 mg PO DAILY 05/19/21 05/19/21 Unknown History Mirtazapine [Remeron 30mg TAB] 30 mg PO HS 05/19/21 05/19/21 Unknown History QUEtiapine [SEROquel] 100 mg PO DAILY 05/19/21 05/19/21 Unknown History Quetiapine Fumarate [SEROquel] 400 mg PO HS 05/19/21 05/19/21 Unknown History Sertraline HCl [Zoloft] 150 mg PO DAILY 05/19/21 05/19/21 Unknown History diphenhydrAMINE [Benadryl CAP] 25 mg PO HS 05/19/21 05/19/21 Unknown History hydroCHLOROthiazide [HCTZ] 25 mg PO DAILY 05/19/21 05/19/21 Unknown History traZODone [Desyrel] 100 mg PO QHS 05/19/21 05/19/21 Unknown History Mental Status Exam - Vital signs Last Vital Signs Temp 98.7 F 05/19/21 01:00 Pulse 88 05/19/21 01:00 Resp 20 05/19/21 01:00 BP 164/106 05/19/21 01:00 Pulse Ox 97 05/19/21 01:00 Results Result Diagrams: 05/19/21 05:08 05/19/21 05:08 Abnormal lab results 05/19/21 05/19/21 05/19/21 Range/Units 01:55 05:08 05:08 RDW 15.8 H (13.2-15.2) % Plt Count 120 L (140-440) K/mm3 Lymph % (Auto) 38.2 H (13.4-35.0) % [place] % (Auto) 10.8 H (0.0-7.3) % Sodium 133 L (137-145) mmol/L Chloride 97.3 L (98-107) mmol/L BUN 20 H (7-17) mg/dL Glucose 141 H (65-100) mg/dL POC Glucose 176 H (70-105) mg/dL Hemoglobin A1c (4-6) % Albumin 3.5 L (3.9-5) g/dL HDL Cholesterol 64 H (40-59) mg/dL 05/19/21 05/19/21 Range/Units 05:08 06:26 RDW (13.2-15.2) % Plt Count (140-440) K/mm3 Lymph % (Auto) (13.4-35.0) % [place] % (Auto) (0.0-7.3) % Sodium (137-145) mmol/L Chloride (98-107) mmol/L BUN (7-17) mg/dL Glucose (65-100) mg/dL POC Glucose 123 H (70-105) mg/dL Hemoglobin A1c 6.6 H (4-6) % Albumin (3.9-5) g/dL HDL Cholesterol (40-59) mg/dL All other labs normal.
[2021-05-19] MEDS ORDERED: NON-FORMULARY EACH (Loratadine [Allergy Relief] 10 MG Tablet) PO SCH (10:00)
[2021-05-19] MEDS: SERTRALINE 100 MG TAB PO SCH (10:02)
[2021-05-19] MEDS: METOPROLOL TARTRATE 25 MG TAB PO SCH (10:03)
[2021-05-19] MEDS: QUEtiapine 100 MG TAB PO SCH (10:03)
[2021-05-19] MEDS: hydroCHLOROthiazide 25 MG TAB PO SCH (10:03)
[2021-05-19] MEDS: CARBIDOPA PO SCH ×2 (10:04→21:00)
[2021-05-19] MEDS: LISINOPRIL 5 MG TAB PO SCH (10:04)
[2021-05-19] MEDS: LEVODOPA PO SCH ×2 (10:04→21:00)
[2021-05-19] MEDS: CETIRIZINE 10 MG TAB PO SCH (10:04)
[2021-05-19] MEDS: QUEtiapine 200 MG TAB PO SCH (21:00)
[2021-05-19] MEDS: DIVALPROEX ER 500 MG TAB PO SCH (21:00)
[2021-05-19] MEDS: diphenhydrAMINE 25 MG CAP PO SCH (21:00)
[2021-05-19] MEDS: MIRTAZAPINE 30 MG TAB PO SCH (21:01)
[2021-05-19] MEDS: traZODone 100 MG TAB PO SCH (21:01)
[2021-05-20] MEDS: CETIRIZINE 10 MG TAB PO SCH (09:35)
[2021-05-20] MEDS: hydroCHLOROthiazide 25 MG TAB PO SCH (09:35)
[2021-05-20] MEDS: METOPROLOL TARTRATE 25 MG TAB PO SCH (09:35)
[2021-05-20] MEDS: LISINOPRIL 5 MG TAB PO SCH (09:35)
[2021-05-20] MEDS: QUEtiapine 100 MG TAB PO SCH (09:35)
[2021-05-20] MEDS: CARBIDOPA PO SCH ×2 (09:36→21:13)
[2021-05-20] MEDS: LEVODOPA PO SCH ×2 (09:36→21:13)
[2021-05-20] MEDS: SERTRALINE 100 MG TAB PO SCH (09:36)
--- NOTE | 2021-05-20 10:06 | Progress Note ---
Subjective Date of service: 05/20/21 Principal diagnosis: schizoaffective disorder Subjective Comment: The patient was seen today. She is in the dayroom. She appears drowsy. The patient does express being tired. She says she doesn't like all the food. When asking about SI/HI, the patient says "yea, suicidal, but I'll probably be like that for about a week." He denies hallucinations. REVIEW OF SYSTEMS Constitutional: Negative for weight loss ENT: Negative for stridor Respiratory: Negative for cough or hemoptysis All other systems reviewed and are negative MENTAL STATUS EXAMINATION General Appearance and Behavior: Age appropriate, good hygiene, wearing appropriate clothes, good eye contact Cooperation: Participating/engaged, but Guarded Psychomotor Behavior: Psychomotor normal Mood: depressed Affect and affective range: Congruent with mood and flat Thought Process: illogical Thought Content: helplessness Speech: Normal rate, volume and rhythm Intellectual Functioning: Average Suicidal Ideation: SI Homicidal Ideation: Denies HI Impulse Control: Impaired Insight and Judgment: Limited insight and judgment Memory: Normal Attention: Normal Orientation: Alert, Assessment and Plan (1) Bipolar Disorder Current Visit: Yes Status: Acute Treatment Plan Patient admitted for inpatient psychiatric evaluation, medication adjustment and close monitoring The patient's behavior, mood, sleep and appetite will be closely monitored. Patient enrolled in individual and group therapeutic sessions and encouraged to attend. Patient provided with a safe and structured environment. Patient's physical health needs will be addressed by the Hospitalist. Hospitalist Consulted Labs including CBC, CMP, Lipid profile and Hemoglobin A1C levels ordered for baseline reference Valproic level Social Assessment will be completed and the Full Service Supervisor will work with patient and family to ensure a suitable and safe disposition Medication adjustment will be made as clinically indicated Usual Wellness Religion/Preservation: - Start Trazodone 50 mg po QHS & 50 mg po QHS PRN between 10 PM & 2 AM for insomnia - Start Melatonin 5 mg po QHS to promote circadian rhythm The patient agreed on the treatment plan, understood the risk, benefit, alternative treatment, potential consequence of no treatment, and gave informed consent. Estimated days: 5 Post hospital care: primary care provider, psychiatric provider Case staffed with Dr. Aguilera Medications and Allergies Allergies Allergy/AdvReac Type Severity Reaction Status Date / Time codeine Allergy Unknown Verified 05/18/21 23:48 Penicillins Allergy Unknown Verified 05/18/21 23:48 Home Medications Medication Instructions Recorded Confirmed Last Taken Type AtorvaSTATin [Lipitor] 20 mg PO HS 05/19/21 05/19/21 Unknown History Carbidopa/Levodopa 1 tab PO BID 05/19/21 05/19/21 Unknown History [Carbidopa-Levodopa 10-100 Tab] Divalproex ER [DepaKOTE ER] 1,500 mg PO HS 05/19/21 05/19/21 Unknown History Lisinopril [Zestril] 5 mg PO DAILY 05/19/21 05/19/21 Unknown History Loratadine [Allergy Relief] 10 mg PO DAILY 05/19/21 05/19/21 Unknown History Metoprolol [Lopressor TAB] 25 mg PO DAILY 05/19/21 05/19/21 Unknown History Mirtazapine [Remeron 30mg TAB] 30 mg PO HS 05/19/21 05/19/21 Unknown History QUEtiapine [SEROquel] 100 mg PO DAILY 05/19/21 05/19/21 Unknown History Quetiapine Fumarate [SEROquel] 400 mg PO 05/19/21 05/19/21 Unknown History Sertraline HCl [Zoloft] 150 mg PO DAILY 05/19/21 05/19/21 Unknown History diphenhydrAMINE [Benadryl CAP] 25 mg PO 05/19/21 05/19/21 Unknown History hydroCHLOROthiazide [HCTZ] 25 mg PO DAILY 05/19/21 05/19/21 Unknown History traZODone [Desyrel] 100 mg PO QHS 05/19/21 05/19/21 Unknown History Active Meds: Active Medications Atorvastatin Calcium (Atorvastatin 20 Mg Tab) 20 mg PO [facility] Last Admin: 05/19/21 21:01 Dose: 20 mg Documented by: Carbidopa/Levodopa (Carbidopa/Levodopa 10-100 Mg Tab) 1 each PO BID [facility] Last Admin: 05/20/21 09:36 Dose: 1 each Documented by: Cetirizine HCl (Cetirizine 10 Mg Tab) 10 mg PO DAILY [facility] Last Admin: 05/20/21 09:35 Dose: 10 mg Documented by: Diphenhydramine HCl (Diphenhydramine 25 Mg Cap) 25 mg PO [facility] Last Admin: 05/19/21 21:00 Dose: 25 mg Documented by: Divalproex Sodium (Divalproex Er 500 Mg Tab) 1,500 mg PO [facility] Last Admin: 05/19/21 21:00 Dose: 1,500 mg Documented by: Hydrochlorothiazide (Hydrochlorothiazide 25 Mg Tab) 25 mg PO DAILY [facility] Last Admin: 05/20/21 09:35 Dose: 25 mg Documented by: Lisinopril (Lisinopril 5 Mg Tab) 5 mg PO DAILY [facility] Last Admin: 05/20/21 09:35 Dose: 5 mg Documented by: Metoprolol Tartrate (Metoprolol Tartrate 25 Mg Tab) 25 mg PO DAILY [facility] Last Admin: 05/20/21 09:35 Dose: 25 mg Documented by: Mirtazapine (Mirtazapine 30 Mg Tab) 30 mg PO [facility] Last Admin: 05/19/21 21:01 Dose: 30 mg Documented by: Quetiapine Fumarate (Quetiapine 100 Mg Tab) 100 mg PO DAILY [facility] Last Admin: 05/20/21 09:35 Dose: 100 mg Documented by: Quetiapine Fumarate (Quetiapine 200 Mg Tab) 400 mg PO [facility] Last Admin: 05/19/21 21:00 Dose: 400 mg Documented by: Sertraline HCl (Sertraline 100 Mg Tab) 150 mg PO DAILY [facility] Last Admin: 05/20/21 09:36 Dose: 150 mg Documented by: Trazodone HCl (Trazodone 100 Mg Tab) 100 mg PO QHS [facility] Last Admin: 05/19/21 21:01 Dose: 100 mg Documented by: Results - Results Labs/Vitals: Laboratory Last Values WBC 4.9 K/mm3 (4.5-11.0) 05/19/21 05:08 RBC 4.10 M/mm3 (3.65-5.03) 05/19/21 05:08 Hgb 13.3 gm/dl (10.1-14.3) 05/19/21 05:08 Hct 38.7 % (30.3-42.9) 05/19/21 05:08 MCV 94 fl (79-97) 05/19/21 05:08 MCH 32 pg (28-32) 05/19/21 05:08 MCHC 34 % (30-34) 05/19/21 05:08 RDW 15.8 % (13.2-15.2) H 05/19/21 05:08 Plt Count 120 K/mm3 (140-440) L 05/19/21 05:08 Lymph % (Auto) 38.2 % (13.4-35.0) H 05/19/21 05:08 [place] % (Auto) 10.8 % (0.0-7.3) H 05/19/21 05:08 Eos % (Auto) 1.0 % (0.0-4.3) 05/19/21 05:08 Baso % (Auto) 0.4 % (0.0-1.8) 05/19/21 05:08 Lymph # (Auto) 1.9 K/mm3 (1.2-5.4) 05/19/21 05:08 [place] # (Auto) 0.5 K/mm3 (0.0-0.8) 05/19/21 05:08 Eos # (Auto) 0.0 K/mm3 (0.0-0.4) 05/19/21 05:08 Baso # (Auto) 0.0 K/mm3 (0.0-0.1) 05/19/21 05:08 Seg Neutrophils % 49.6 % (40.0-70.0) 05/19/21 05:08 Seg Neutrophils # 2.5 K/mm3 (1.8-7.7) 05/19/21 05:08 Sodium 133 mmol/L (137-145) L 05/19/21 05:08 Potassium 3.8 mmol/L (3.6-5.0) 05/19/21 05:08 Chloride 97.3 mmol/L (98-107) L 05/19/21 05:08 Carbon Dioxide 23 mmol/L (22-30) 05/19/21 05:08 Anion Gap 17 mmol/L 05/19/21 05:08 BUN 20 mg/dL (7-17) H 05/19/21 05:08 Creatinine 0.7 mg/dL (0.6-1.2) 05/19/21 05:08 Estimated GFR > 60 ml/min 05/19/21 05:08 BUN/Creatinine Ratio 29 % 05/19/21 05:08 Glucose 141 mg/dL (65-100) H 05/19/21 05:08 POC Glucose 138 mg/dL (70-105) H 05/20/21 06:20 Hemoglobin A1c 6.6 % (4-6) H 05/19/21 05:08 Calcium 8.6 mg/dL (8.4-10.2) 05/19/21 05:08 Total Bilirubin 0.40 mg/dL (0.1-1.2) 05/19/21 05:08 AST 20 units/L (5-40) 05/19/21 05:08 ALT 18 units/L (7-56) 05/19/21 05:08 Alkaline Phosphatase 77 units/L (35-129) 05/19/21 05:08 Total Protein 6.6 g/dL (6.3-8.2) 05/19/21 05:08 Albumin 3.5 g/dL (3.9-5) L 05/19/21 05:08 Albumin/Globulin Ratio 1.1 % 05/19/21 05:08 Triglycerides 106 mg/dL (2-149) 05/19/21 05:08 Cholesterol 150 mg/dL (50-199) 05/19/21 05:08 LDL Cholesterol Direct 61 mg/dL (50-130) 05/19/21 05:08 HDL Cholesterol 64 mg/dL (40-59) H 05/19/21 05:08 Cholesterol/HDL Ratio 2.34 % 05/19/21 05:08 TSH 2.460 mlU/mL (0.270-4.200) 05/19/21 05:08 Last Vital Signs Temp 98.9 F 05/20/21 07:29 Pulse 83 05/20/21 09:35 Resp 18 05/20/21 07:29 BP 129/75 05/20/21 09:35 Pulse Ox 95 05/20/21 07:29
[2021-05-20] MEDS ORDERED: DEXTROSE 50% IN WATER (25GM) 50 ML SYRINGE IV PRN (11:58)
--- NOTE | 2021-05-20 12:04 | Consultation ---
History of Present Illness - Reason for Consult Consult date: 05/20/21 Medical management Requesting physician: IVAN BAÑUELOS - History of Present Illness 56-year-old female with medical history significant for bipolar disorder, she is affective disorder, hypertension, diabetes was admitted to [facility] for suicidal ideation. I have been consulted for medical management. I have seen and evaluated the patient. Patient does not answer questions directly and history is obtained from nursing staff and chart review. Review of system could not be obtained; because patient does not answer questions. When asked her questions her answers something unrelated to the question. Past History Past Medical History: diabetes, hypertension Past Surgical History: Other (Patient could not answer) Social history: other (Patient could not answer) Family history: other (Patient could not answer) Medications and Allergies Allergies Allergy/AdvReac Type Severity Reaction Status Date / Time codeine Allergy Unknown Verified 05/18/21 23:48 Penicillins Allergy Unknown Verified 05/18/21 23:48 Home Medications Medication Instructions Recorded Confirmed Last Taken Type AtorvaSTATin [Lipitor] 20 mg PO HS 05/19/21 05/19/21 Unknown History Carbidopa/Levodopa 1 tab PO BID 05/19/21 05/19/21 Unknown History [Carbidopa-Levodopa 10-100 Tab] Divalproex ER [DepaKOTE ER] 1,500 mg PO HS 05/19/21 05/19/21 Unknown History Lisinopril [Zestril] 5 mg PO DAILY 05/19/21 05/19/21 Unknown History Loratadine [Allergy Relief] 10 mg PO DAILY 05/19/21 05/19/21 Unknown History Metoprolol [Lopressor TAB] 25 mg PO DAILY 05/19/21 05/19/21 Unknown History Mirtazapine [Remeron 30mg TAB] 30 mg PO HS 05/19/21 05/19/21 Unknown History QUEtiapine [SEROquel] 100 mg PO DAILY 05/19/21 05/19/21 Unknown History Quetiapine Fumarate [SEROquel] 400 mg PO HS 05/19/21 05/19/21 Unknown History Sertraline HCl [Zoloft] 150 mg PO DAILY 05/19/21 05/19/21 Unknown History diphenhydrAMINE [Benadryl CAP] 25 mg PO HS 05/19/21 05/19/21 Unknown History hydroCHLOROthiazide [HCTZ] 25 mg PO DAILY 05/19/21 05/19/21 Unknown History traZODone [Desyrel] 100 mg PO QHS 05/19/21 05/19/21 Unknown History Active Meds: Active Medications Atorvastatin Calcium (Atorvastatin 20 Mg Tab) 20 mg PO HS [facility] Last Admin: 05/19/21 21:01 Dose: 20 mg Documented by: Carbidopa/Levodopa (Carbidopa/Levodopa 10-100 Mg Tab) 1 each PO BID [facility] Last Admin: 05/20/21 09:36 Dose: 1 each Documented by: Cetirizine HCl (Cetirizine 10 Mg Tab) 10 mg PO DAILY [facility] Last Admin: 05/20/21 09:35 Dose: 10 mg Documented by: Diphenhydramine HCl (Diphenhydramine 25 Mg Cap) 25 mg PO [facility] Last Admin: 05/19/21 21:00 Dose: 25 mg Documented by: Divalproex Sodium (Divalproex Er 500 Mg Tab) 1,500 mg PO HS [facility] Last Admin: 05/19/21 21:00 Dose: 1,500 mg Documented by: Hydrochlorothiazide (Hydrochlorothiazide 25 Mg Tab) 25 mg PO DAILY [facility] Last Admin: 05/20/21 09:35 Dose: 25 mg Documented by: Lisinopril (Lisinopril 5 Mg Tab) 5 mg PO DAILY [facility] Last Admin: 05/20/21 09:35 Dose: 5 mg Documented by: Metoprolol Tartrate (Metoprolol Tartrate 25 Mg Tab) 25 mg PO DAILY [facility] Last Admin: 05/20/21 09:35 Dose: 25 mg Documented by: Mirtazapine (Mirtazapine 30 Mg Tab) 30 mg PO [facility] Last Admin: 05/19/21 21:01 Dose: 30 mg Documented by: Quetiapine Fumarate (Quetiapine 100 Mg Tab) 100 mg PO DAILY [facility] Last Admin: 05/20/21 09:35 Dose: 100 mg Documented by: Quetiapine Fumarate (Quetiapine 200 Mg Tab) 400 mg PO [facility] Last Admin: 05/19/21 21:00 Dose: 400 mg Documented by: Sertraline HCl (Sertraline 100 Mg Tab) 150 mg PO DAILY [facility] Last Admin: 05/20/21 09:36 Dose: 150 mg Documented by: Trazodone HCl (Trazodone 100 Mg Tab) 100 mg PO QHS [facility] Last Admin: 05/19/21 21:01 Dose: 100 mg Documented by: Review of Systems ROS unobtainable: due to mental status (Patient does not answer questions dire ctly) Exam - Physical Exam Narrative exam: Not in cardiopulmonary distress. The patient appeared well nourished and normally developed. Vital signs as documented. Head exam is unremarkable. No scleral icterus . Neck is without jugular venous distension, thyromegaly, or carotid bruits. Lungs are clear to auscultation. Cardiac exam reveals regular rate and Rhythm. Abdominal exam reveals normal bowel sounds, nontender, no organomegaly. Extremities are nonedematous and both femoral and pedal pulses are normal. APPRENTICE ARCHITECT: Alert. No focal weakness. - Constitutional Vitals: Temp Pulse Resp BP Pulse Ox 98.9 F 83 18 129/75 95 05/20/21 07:29 05/20/21 10:00 05/20/21 07:29 05/20/21 10:00 05/20/21 07:29 Results - Labs CBC & Chem 7: 05/19/21 05:08 05/19/21 05:08 Labs: Abnormal lab results 05/20/21 Range/Units 06:20 POC Glucose 138 H (70-105) mg/dL Assessment and Plan Schizoaffective disorder Bipolar disorder Suicidal ideation -Management is per psychiatry Diabetes -Patient has elevated blood sugar and hemoglobin A1c is 6.6 -I started the patient on moderate dose sliding scale insulin -Patient can be discharged with 500 mg of Metformin twice daily Hypertension -Home medications were resumed blood pressure is controlled continue with current regimen Thank you for the consult. Please give me a Call for any questions.
[2021-05-20] MEDS: INSULIN LISPRO 100 UNIT/ML SUB-Q SCH ×2 (16:28→21:50)
[2021-05-20] MEDS: MIRTAZAPINE 30 MG TAB PO SCH (21:13)
[2021-05-20] MEDS: traZODone 100 MG TAB PO SCH (21:13)
[2021-05-20] MEDS: diphenhydrAMINE 25 MG CAP PO SCH (21:14)
[2021-05-20] MEDS: QUEtiapine 200 MG TAB PO SCH (21:14)
[2021-05-20] MEDS: DIVALPROEX ER 500 MG TAB PO SCH (21:14)
--- NOTE | 2021-05-21 09:01 | History and Physical Report ---
GP History & Physical - History of Present Illness Date of admission: 05/20/21 Date of Examination: 05/21/21 Reason for Admission: Danger to self, Danger to others, Failure of Outpatient Treatment, Severe anxiety/depression Legal Status: Voluntary Reaction to Hospitalization: Accepting Medications and Allergies Allergies Allergy/AdvReac Type Severity Reaction Status Date / Time codeine Allergy Unknown Verified 05/18/21 23:48 Penicillins Allergy Unknown Verified 05/18/21 23:48 Home Medications Medication Instructions Recorded Confirmed Last Taken Type AtorvaSTATin [Lipitor] 20 mg PO HS 05/19/21 05/19/21 Unknown History Carbidopa/Levodopa 1 tab PO BID 05/19/21 05/19/21 Unknown History [Carbidopa-Levodopa 10-100 Tab] Divalproex ER [DepaKOTE ER] 1,500 mg PO HS 05/19/21 05/19/21 Unknown History Lisinopril [Zestril] 5 mg PO DAILY 05/19/21 05/19/21 Unknown History Loratadine [Allergy Relief] 10 mg PO DAILY 05/19/21 05/19/21 Unknown History Metoprolol [Lopressor TAB] 25 mg PO DAILY 05/19/21 05/19/21 Unknown History Mirtazapine [Remeron 30mg TAB] 30 mg PO HS 05/19/21 05/19/21 Unknown History QUEtiapine [SEROquel] 100 mg PO DAILY 05/19/21 05/19/21 Unknown History Quetiapine Fumarate [SEROquel] 400 mg PO 05/19/21 05/19/21 Unknown History Sertraline HCl [Zoloft] 150 mg PO DAILY 05/19/21 05/19/21 Unknown History diphenhydrAMINE [Benadryl CAP] 25 mg PO 05/19/21 05/19/21 Unknown History hydroCHLOROthiazide [HCTZ] 25 mg PO DAILY 05/19/21 05/19/21 Unknown History traZODone [Desyrel] 100 mg PO QHS 05/19/21 05/19/21 Unknown History Active Meds: Active Medications Atorvastatin Calcium (Atorvastatin 20 Mg Tab) 20 mg PO [facility] Last Admin: 05/20/21 21:13 Dose: 20 mg Documented by: Carbidopa/Levodopa (Carbidopa/Levodopa 10-100 Mg Tab) 1 each PO BID [facility] Last Admin: 05/20/21 21:13 Dose: 1 each Documented by: Cetirizine HCl (Cetirizine 10 Mg Tab) 10 mg PO DAILY [facility] Last Admin: 05/20/21 09:35 Dose: 10 mg Documented by: Dextrose (Dextrose 50% In Water (25gm) 50 Ml Syringe) 50 ml IV Q30MIN PRN; Protocol PRN Reason: Hypoglycemia Diphenhydramine HCl (Diphenhydramine 25 Mg Cap) 25 mg PO [facility] Last Admin: 05/20/21 21:14 Dose: 25 mg Documented by: Divalproex Sodium (Divalproex Er 500 Mg Tab) 1,500 mg PO [facility] Last Admin: 05/20/21 21:14 Dose: 1,500 mg Documented by: Hydrochlorothiazide (Hydrochlorothiazide 25 Mg Tab) 25 mg PO DAILY [facility] Last Admin: 05/20/21 09:35 Dose: 25 mg Documented by: Insulin Human Lispro (Insulin Lispro 100 Unit/Ml) 0 unit SUB-Q ACHS [facility]; Protocol Last Admin: 05/20/21 21:50 Dose: 3 unit Documented by: Lisinopril (Lisinopril 5 Mg Tab) 5 mg PO DAILY [facility] Last Admin: 05/20/21 09:35 Dose: 5 mg Documented by: Metoprolol Tartrate (Metoprolol Tartrate 25 Mg Tab) 25 mg PO DAILY [facility] Last Admin: 05/20/21 09:35 Dose: 25 mg Documented by: Mirtazapine (Mirtazapine 30 Mg Tab) 30 mg PO [facility] Last Admin: 05/20/21 21:13 Dose: 30 mg Documented by: Quetiapine Fumarate (Quetiapine 100 Mg Tab) 100 mg PO DAILY [facility] Last Admin: 05/20/21 09:35 Dose: 100 mg Documented by: Quetiapine Fumarate (Quetiapine 200 Mg Tab) 400 mg PO [facility] Last Admin: 05/20/21 21:14 Dose: 400 mg Documented by: Sertraline HCl (Sertraline 100 Mg Tab) 150 mg PO DAILY [facility] Last Admin: 05/20/21 09:36 Dose: 150 mg Documented by: Trazodone HCl (Trazodone 100 Mg Tab) 100 mg PO QHS [facility] Last Admin: 05/20/21 21:13 Dose: 100 mg Documented by: Results - Results Labs/Vitals: Laboratory Last Values WBC 4.9 K/mm3 (4.5-11.0) 05/19/21 05:08 RBC 4.10 M/mm3 (3.65-5.03) 05/19/21 05:08 Hgb 13.3 gm/dl (10.1-14.3) 05/19/21 05:08 Hct 38.7 % (30.3-42.9) 05/19/21 05:08 MCV 94 fl (79-97) 05/19/21 05:08 MCH 32 pg (28-32) 05/19/21 05:08 MCHC 34 % (30-34) 05/19/21 05:08 RDW 15.8 % (13.2-15.2) H 05/19/21 05:08 Plt Count 120 K/mm3 (140-440) L 05/19/21 05:08 Lymph % (Auto) 38.2 % (13.4-35.0) H 05/19/21 05:08 [place] % (Auto) 10.8 % (0.0-7.3) H 05/19/21 05:08 Eos % (Auto) 1.0 % (0.0-4.3) 05/19/21 05:08 Baso % (Auto) 0.4 % (0.0-1.8) 05/19/21 05:08 Lymph # (Auto) 1.9 K/mm3 (1.2-5.4) 05/19/21 05:08 [place] # (Auto) 0.5 K/mm3 (0.0-0.8) 05/19/21 05:08 Eos # (Auto) 0.0 K/mm3 (0.0-0.4) 05/19/21 05:08 Baso # (Auto) 0.0 K/mm3 (0.0-0.1) 05/19/21 05:08 Seg Neutrophils % 49.6 % (40.0-70.0) 05/19/21 05:08 Seg Neutrophils # 2.5 K/mm3 (1.8-7.7) 05/19/21 05:08 Sodium 133 mmol/L (137-145) L 05/19/21 05:08 Potassium 3.8 mmol/L (3.6-5.0) 05/19/21 05:08 Chloride 97.3 mmol/L (98-107) L 05/19/21 05:08 Carbon Dioxide 23 mmol/L (22-30) 05/19/21 05:08 Anion Gap 17 mmol/L 05/19/21 05:08 BUN 20 mg/dL (7-17) H 05/19/21 05:08 Creatinine 0.7 mg/dL (0.6-1.2) 05/19/21 05:08 Estimated GFR > 60 ml/min 05/19/21 05:08 BUN/Creatinine Ratio 29 % 05/19/21 05:08 Glucose 141 mg/dL (65-100) H 05/19/21 05:08 POC Glucose 127 mg/dL (70-105) H 05/21/21 06:25 Hemoglobin A1c 6.6 % (4-6) H 05/19/21 05:08 Calcium 8.6 mg/dL (8.4-10.2) 05/19/21 05:08 Total Bilirubin 0.40 mg/dL (0.1-1.2) 05/19/21 05:08 AST 20 units/L (5-40) 05/19/21 05:08 ALT 18 units/L (7-56) 05/19/21 05:08 Alkaline Phosphatase 77 units/L (35-129) 05/19/21 05:08 Total Protein 6.6 g/dL (6.3-8.2) 05/19/21 05:08 Albumin 3.5 g/dL (3.9-5) L 05/19/21 05:08 Albumin/Globulin Ratio 1.1 % 05/19/21 05:08 Triglycerides 106 mg/dL (2-149) 05/19/21 05:08 Cholesterol 150 mg/dL (50-199) 05/19/21 05:08 LDL Cholesterol Direct 61 mg/dL (50-130) 05/19/21 05:08 HDL Cholesterol 64 mg/dL (40-59) H 05/19/21 05:08 Cholesterol/HDL Ratio 2.34 % 05/19/21 05:08 TSH 2.460 mlU/mL (0.270-4.200) 05/19/21 05:08 Valproic Acid 84.6 ug/mL (50-100) 05/20/21 09:31 Last Vital Signs Temp 98.2 F 05/20/21 22:00 Pulse 65 05/20/21 22:00 Resp 18 05/20/21 22:00 BP 122/64 05/20/21 22:00 Pulse Ox 95 05/20/21 22:00 Physical Examination - Constitutional Vitals: Vital Signs Temp Pulse Resp BP Pulse Ox 98.2 F 65 18 122/64 95 05/20/21 22:00 05/20/21 22:00 05/20/21 22:00 05/20/21 22:00 05/20/21 22:00 Temperature -Last 24 Hours Temperature 98.2 F Mental Status Exam - Vital signs Last Vital Signs Temp 98.2 F 05/20/21 22:00 Pulse 65 05/20/21 22:00 Resp 18 05/20/21 22:00 BP 122/64 05/20/21 22:00 Pulse Ox 95 05/20/21 22:00 Physician Certification - Certification Statement Physician Certification Statement: This is an acknowledgement statement that FRANCISCA CARRERA is a 56 year old F who requires inpatient psychiatric admission for treatment which could reasonably be expected to improve the patient's condition for Estimated period of time patient will need to remain in the hospital: [ ] Plan for post-hospital care: [ ]
--- NOTE | 2021-05-21 09:04 | Progress Note ---
Subjective Date of service: 05/21/21 Principal diagnosis: schizoaffective disorder Subjective Comment: The patient was seen today. Her affect is restricted. She says "I can't wait to get home so I can buy groceries and so on." The patient says she feels better. Despite this she appears down. She says "sometimes" when asked about hallucinations. When asked was she still suicidal she nods her head "yes." REVIEW OF SYSTEMS Constitutional: Negative for weight loss ENT: Negative for stridor Respiratory: Negative for cough or hemoptysis All other systems reviewed and are negative MENTAL STATUS EXAMINATION General Appearance and Behavior: Age appropriate, good hygiene, wearing appropriate clothes, good eye contact Cooperation: Participating/engaged, but Guarded Psychomotor Behavior: Psychomotor normal Mood: depressed Affect and affective range: Congruent with mood and flat Thought Process: illogical Thought Content: helplessness Speech: Normal rate, volume and rhythm Intellectual Functioning: Average Suicidal Ideation: SI Homicidal Ideation: Denies HI Impulse Control: Impaired Insight and Judgment: Limited insight and judgment Memory: Normal Attention: Normal Orientation: Alert, Assessment and Plan (1) Bipolar Disorder Current Visit: Yes Status: Acute Treatment Plan Patient admitted for inpatient psychiatric evaluation, medication adjustment and close monitoring The patient's behavior, mood, sleep and appetite will be closely monitored. Patient enrolled in individual and group therapeutic sessions and encouraged to attend. Patient provided with a safe and structured environment. Patient's physical health needs will be addressed by the Hospitalist. Hospitalist Consulted Labs including CBC, CMP, Lipid profile and Hemoglobin A1C levels ordered for baseline reference Valproic level Social Assessment will be completed and the [employer] Boss will work with patient and family to ensure a suitable and safe disposition Medication adjustment will be made as clinically indicated Increased daytime Seroquel to 125mg daily Usual Wellness Confucianist/Preservation: - Start Trazodone 50 mg po QHS & 50 mg po QHS PRN between 10 PM & 2 AM for insomnia - Start Melatonin 5 mg po QHS to promote circadian rhythm The patient agreed on the treatment plan, understood the risk, benefit, alternative treatment, potential consequence of no treatment, and gave informed consent. Estimated days: 5 Post hospital care: primary care provider, psychiatric provider Case staffed with Dr. Aguilera Medications and Allergies Allergies Allergy/AdvReac Type Severity Reaction Status Date / Time codeine Allergy Unknown Verified 05/18/21 23:48 Penicillins Allergy Unknown Verified 05/18/21 23:48 Home Medications Medication Instructions Recorded Confirmed Last Taken Type AtorvaSTATin [Lipitor] 20 mg PO HS 05/19/21 05/19/21 Unknown History Carbidopa/Levodopa 1 tab PO BID 05/19/21 05/19/21 Unknown History [Carbidopa-Levodopa 10-100 Tab] Divalproex ER [DepaKOTE ER] 1,500 mg PO HS 05/19/21 05/19/21 Unknown History Lisinopril [Zestril] 5 mg PO DAILY 05/19/21 05/19/21 Unknown History Loratadine [Allergy Relief] 10 mg PO DAILY 05/19/21 05/19/21 Unknown History Metoprolol [Lopressor TAB] 25 mg PO DAILY 05/19/21 05/19/21 Unknown History Mirtazapine [Remeron 30mg TAB] 30 mg PO HS 05/19/21 05/19/21 Unknown History QUEtiapine [SEROquel] 100 mg PO DAILY 05/19/21 05/19/21 Unknown History Quetiapine Fumarate [SEROquel] 400 mg PO HS 05/19/21 05/19/21 Unknown History Sertraline HCl [Zoloft] 150 mg PO DAILY 05/19/21 05/19/21 Unknown History diphenhydrAMINE [Benadryl CAP] 25 mg PO HS 05/19/21 05/19/21 Unknown History hydroCHLOROthiazide [HCTZ] 25 mg PO DAILY 05/19/21 05/19/21 Unknown History traZODone [Desyrel] 100 mg PO QHS 05/19/21 05/19/21 Unknown History Active Meds: Active Medications Atorvastatin Calcium (Atorvastatin 20 Mg Tab) 20 mg PO [facility] Last Admin: 05/20/21 21:13 Dose: 20 mg Documented by: Carbidopa/Levodopa (Carbidopa/Levodopa 10-100 Mg Tab) 1 each PO BID [facility] Last Admin: 05/20/21 21:13 Dose: 1 each Documented by: Cetirizine HCl (Cetirizine 10 Mg Tab) 10 mg PO DAILY [facility] Last Admin: 05/20/21 09:35 Dose: 10 mg Documented by: Dextrose (Dextrose 50% In Water (25gm) 50 Ml Syringe) 50 ml IV Q30MIN PRN; Protocol PRN Reason: Hypoglycemia Diphenhydramine HCl (Diphenhydramine 25 Mg Cap) 25 mg PO [facility] Last Admin: 05/20/21 21:14 Dose: 25 mg Documented by: Divalproex Sodium (Divalproex Er 500 Mg Tab) 1,500 mg PO HS [facility] Last Admin: 05/20/21 21:14 Dose: 1,500 mg Documented by: Hydrochlorothiazide (Hydrochlorothiazide 25 Mg Tab) 25 mg PO DAILY [facility] Last Admin: 05/20/21 09:35 Dose: 25 mg Documented by: Insulin Human Lispro (Insulin Lispro 100 Unit/Ml) 0 unit SUB-Q [facility]; Protocol Last Admin: 05/20/21 21:50 Dose: 3 unit Documented by: Lisinopril (Lisinopril 5 Mg Tab) 5 mg PO DAILY [facility] Last Admin: 05/20/21 09:35 Dose: 5 mg Documented by: Metoprolol Tartrate (Metoprolol Tartrate 25 Mg Tab) 25 mg PO DAILY [facility] Last Admin: 05/20/21 09:35 Dose: 25 mg Documented by: Mirtazapine (Mirtazapine 30 Mg Tab) 30 mg PO [facility] Last Admin: 05/20/21 21:13 Dose: 30 mg Documented by: Quetiapine Fumarate (Quetiapine 100 Mg Tab) 100 mg PO DAILY [facility] Last Admin: 05/20/21 09:35 Dose: 100 mg Documented by: Quetiapine Fumarate (Quetiapine 200 Mg Tab) 400 mg PO [facility] Last Admin: 05/20/21 21:14 Dose: 400 mg Documented by: Sertraline HCl (Sertraline 100 Mg Tab) 150 mg PO DAILY [facility] Last Admin: 05/20/21 09:36 Dose: 150 mg Documented by: Trazodone HCl (Trazodone 100 Mg Tab) 100 mg PO QHS [facility] Last Admin: 05/20/21 21:13 Dose: 100 mg Documented by: Results - Results Labs/Vitals: Laboratory Last Values WBC 4.9 K/mm3 (4.5-11.0) 05/19/21 05:08 RBC 4.10 M/mm3 (3.65-5.03) 05/19/21 05:08 Hgb 13.3 gm/dl (10.1-14.3) 05/19/21 05:08 Hct 38.7 % (30.3-42.9) 05/19/21 05:08 MCV 94 fl (79-97) 05/19/21 05:08 MCH 32 pg (28-32) 05/19/21 05:08 MCHC 34 % (30-34) 05/19/21 05:08 RDW 15.8 % (13.2-15.2) H 05/19/21 05:08 Plt Count 120 K/mm3 (140-440) L 05/19/21 05:08 Lymph % (Auto) 38.2 % (13.4-35.0) H 05/19/21 05:08 [place] % (Auto) 10.8 % (0.0-7.3) H 05/19/21 05:08 Eos % (Auto) 1.0 % (0.0-4.3) 05/19/21 05:08 Baso % (Auto) 0.4 % (0.0-1.8) 05/19/21 05:08 Lymph # (Auto) 1.9 K/mm3 (1.2-5.4) 05/19/21 05:08 [place] # (Auto) 0.5 K/mm3 (0.0-0.8) 05/19/21 05:08 Eos # (Auto) 0.0 K/mm3 (0.0-0.4) 05/19/21 05:08 Baso # (Auto) 0.0 K/mm3 (0.0-0.1) 05/19/21 05:08 Seg Neutrophils % 49.6 % (40.0-70.0) 05/19/21 05:08 Seg Neutrophils # 2.5 K/mm3 (1.8-7.7) 05/19/21 05:08 Sodium 133 mmol/L (137-145) L 05/19/21 05:08 Potassium 3.8 mmol/L (3.6-5.0) 05/19/21 05:08 Chloride 97.3 mmol/L (98-107) L 05/19/21 05:08 Carbon Dioxide 23 mmol/L (22-30) 05/19/21 05:08 Anion Gap 17 mmol/L 05/19/21 05:08 BUN 20 mg/dL (7-17) H 05/19/21 05:08 Creatinine 0.7 mg/dL (0.6-1.2) 05/19/21 05:08 Estimated GFR > 60 ml/min 05/19/21 05:08 BUN/Creatinine Ratio 29 % 05/19/21 05:08 Glucose 141 mg/dL (65-100) H 05/19/21 05:08 POC Glucose 127 mg/dL (70-105) H 05/21/21 06:25 Hemoglobin A1c 6.6 % (4-6) H 05/19/21 05:08 Calcium 8.6 mg/dL (8.4-10.2) 05/19/21 05:08 Total Bilirubin 0.40 mg/dL (0.1-1.2) 05/19/21 05:08 AST 20 units/L (5-40) 05/19/21 05:08 ALT 18 units/L (7-56) 05/19/21 05:08 Alkaline Phosphatase 77 units/L (35-129) 05/19/21 05:08 Total Protein 6.6 g/dL (6.3-8.2) 05/19/21 05:08 Albumin 3.5 g/dL (3.9-5) L 05/19/21 05:08 Albumin/Globulin Ratio 1.1 % 05/19/21 05:08 Triglycerides 106 mg/dL (2-149) 05/19/21 05:08 Cholesterol 150 mg/dL (50-199) 05/19/21 05:08 LDL Cholesterol Direct 61 mg/dL (50-130) 05/19/21 05:08 HDL Cholesterol 64 mg/dL (40-59) H 05/19/21 05:08 Cholesterol/HDL Ratio 2.34 % 05/19/21 05:08 TSH 2.460 mlU/mL (0.270-4.200) 05/19/21 05:08 Valproic Acid 84.6 ug/mL (50-100) 05/20/21 09:31 Last Vital Signs Temp 98.2 F 05/20/21 22:00 Pulse 65 05/20/21 22:00 Resp 18 05/20/21 22:00 BP 122/64 05/20/21 22:00 Pulse Ox 95 05/20/21 22:00
[2021-05-21] MEDS ORDERED: QUEtiapine 100 MG TAB PO SCH (09:05)
[2021-05-21] MEDS: INSULIN LISPRO 100 UNIT/ML SUB-Q SCH ×3 (09:13→21:56)
[2021-05-21] MEDS: CETIRIZINE 10 MG TAB PO SCH (10:34)
[2021-05-21] MEDS: hydroCHLOROthiazide 25 MG TAB PO SCH (10:37)
[2021-05-21] MEDS: METOPROLOL TARTRATE 25 MG TAB PO SCH (10:37)
[2021-05-21] MEDS: LISINOPRIL 5 MG TAB PO SCH (10:42)
[2021-05-21] MEDS: LEVODOPA PO SCH ×2 (10:42→22:02)
[2021-05-21] MEDS: CARBIDOPA PO SCH ×2 (10:42→22:02)
[2021-05-21] MEDS: SERTRALINE 100 MG TAB PO SCH (10:44)
[2021-05-21] MEDS: QUEtiapine 100 MG TAB PO SCH (10:47)
[2021-05-21] MEDS: QUEtiapine 25 MG TAB PO SCH (10:49)
[2021-05-21] MEDS: diphenhydrAMINE 25 MG CAP PO SCH (21:59)
[2021-05-21] MEDS: DIVALPROEX ER 500 MG TAB PO SCH (22:00)
[2021-05-21] MEDS: MIRTAZAPINE 30 MG TAB PO SCH (22:01)
[2021-05-21] MEDS: traZODone 100 MG TAB PO SCH (22:01)
[2021-05-21] MEDS: QUEtiapine 200 MG TAB PO SCH (22:02)
[2021-05-22] MEDS: INSULIN LISPRO 100 UNIT/ML SUB-Q SCH ×5 (08:37→21:31)
--- NOTE | 2021-05-22 09:14 | Progress Note ---
Subjective Date of service: 05/22/21 Principal diagnosis: schizoaffective disorder Subjective Comment: The patient was seen today. She is sitting in the dayroom. She says she is hearing voices and her head hurts. When asked what were the voices she says "I don't know." The patient also endorses suicidal thoughts without a plan. REVIEW OF SYSTEMS Constitutional: Negative for weight loss ENT: Negative for stridor Respiratory: Negative for cough or hemoptysis All other systems reviewed and are negative MENTAL STATUS EXAMINATION General Appearance and Behavior: Age appropriate, good hygiene, wearing appropriate clothes, good eye contact Cooperation: Participating/engaged, but Guarded Psychomotor Behavior: Psychomotor normal Mood: depressed Affect and affective range: Congruent with mood and flat Thought Process: illogical Thought Content: hallucinations Speech: Normal rate, volume and rhythm Intellectual Functioning: Average Suicidal Ideation: SI Homicidal Ideation: Denies HI Impulse Control: Impaired Insight and Judgment: Limited insight and judgment Memory: Normal Attention: Normal Orientation: Alert, Assessment and Plan (1) Bipolar Disorder Current Visit: Yes Status: Acute Treatment Plan Patient admitted for inpatient psychiatric evaluation, medication adjustment and close monitoring The patient's behavior, mood, sleep and appetite will be closely monitored. Patient enrolled in individual and group therapeutic sessions and encouraged to attend. Patient provided with a safe and structured environment. Patient's physical health needs will be addressed by the Hospitalist. Hospitalist Consulted Labs including CBC, CMP, Lipid profile and Hemoglobin A1C levels ordered for baseline reference Valproic level 84.6 Social Assessment will be completed and the Perfect [employer] Feeder Offbearer will work with patient and family to ensure a suitable and safe disposition Medication adjustment will be made as clinically indicated Increased daytime Seroquel to 125mg daily yesterday Usual Wellness Anabaptism/Preservation: - Start Trazodone 50 mg po QHS & 50 mg po QHS PRN between 10 PM & 2 AM for insomnia - Start Melatonin 5 mg po QHS to promote circadian rhythm The patient agreed on the treatment plan, understood the risk, benefit, alternative treatment, potential consequence of no treatment, and gave informed consent. Estimated days: 5 Post hospital care: primary care provider, psychiatric provider Case staffed with Dr. Aguilera Medications and Allergies Allergies Allergy/AdvReac Type Severity Reaction Status Date / Time codeine Allergy Unknown Verified 05/18/21 23:48 Penicillins Allergy Unknown Verified 05/18/21 23:48 Home Medications Medication Instructions Recorded Confirmed Last Taken Type AtorvaSTATin [Lipitor] 20 mg PO HS 05/19/21 05/19/21 Unknown History Carbidopa/Levodopa 1 tab PO BID 05/19/21 05/19/21 Unknown History [Carbidopa-Levodopa 10-100 Tab] Divalproex ER [DepaKOTE ER] 1,500 mg PO HS 05/19/21 05/19/21 Unknown History Lisinopril [Zestril] 5 mg PO DAILY 05/19/21 05/19/21 Unknown History Loratadine [Allergy Relief] 10 mg PO DAILY 05/19/21 05/19/21 Unknown History Metoprolol [Lopressor TAB] 25 mg PO DAILY 05/19/21 05/19/21 Unknown History Mirtazapine [Remeron 30mg TAB] 30 mg PO HS 05/19/21 05/19/21 Unknown History QUEtiapine [SEROquel] 100 mg PO DAILY 05/19/21 05/19/21 Unknown History Quetiapine Fumarate [SEROquel] 400 mg PO HS 05/19/21 05/19/21 Unknown History Sertraline HCl [Zoloft] 150 mg PO DAILY 05/19/21 05/19/21 Unknown History diphenhydrAMINE [Benadryl CAP] 25 mg PO HS 05/19/21 05/19/21 Unknown History hydroCHLOROthiazide [HCTZ] 25 mg PO DAILY 05/19/21 05/19/21 Unknown History traZODone [Desyrel] 100 mg PO QHS 05/19/21 05/19/21 Unknown History Active Meds: Active Medications Atorvastatin Calcium (Atorvastatin 20 Mg Tab) 20 mg PO [facility] Last Admin: 05/21/21 22:01 Dose: 20 mg Documented by: Carbidopa/Levodopa (Carbidopa/Levodopa 10-100 Mg Tab) 1 each PO BID [facility] Last Admin: 05/21/21 22:02 Dose: 1 each Documented by: Cetirizine HCl (Cetirizine 10 Mg Tab) 10 mg PO DAILY [facility] Last Admin: 05/21/21 10:34 Dose: 10 mg Documented by: Dextrose (Dextrose 50% In Water (25gm) 50 Ml Syringe) 50 ml IV Q30MIN PRN; Protocol PRN Reason: Hypoglycemia Diphenhydramine HCl (Diphenhydramine 25 Mg Cap) 25 mg PO HS [facility] Last Admin: 05/21/21 21:59 Dose: 25 mg Documented by: Divalproex Sodium (Divalproex Er 500 Mg Tab) 1,500 mg PO [facility] Last Admin: 05/21/21 22:00 Dose: 1,500 mg Documented by: Hydrochlorothiazide (Hydrochlorothiazide 25 Mg Tab) 25 mg PO DAILY [facility] Last Admin: 05/21/21 10:37 Dose: 25 mg Documented by: Insulin Human Lispro (Insulin Lispro 100 Unit/Ml) 0 unit SUB-Q ACHS [facility]; Protocol Last Admin: 05/22/21 08:40 Dose: 2 unit Documented by: Lisinopril (Lisinopril 5 Mg Tab) 5 mg PO DAILY [facility] Last Admin: 05/21/21 10:42 Dose: 5 mg Documented by: Metoprolol Tartrate (Metoprolol Tartrate 25 Mg Tab) 25 mg PO DAILY [facility] Last Admin: 05/21/21 10:37 Dose: 25 mg Documented by: Mirtazapine (Mirtazapine 30 Mg Tab) 30 mg PO [facility] Last Admin: 05/21/21 22:01 Dose: 30 mg Documented by: Quetiapine Fumarate (Quetiapine 200 Mg Tab) 400 mg PO [facility] Last Admin: 05/21/21 22:02 Dose: 400 mg Documented by: Quetiapine Fumarate (Quetiapine 100 Mg Tab) 100 mg PO DAILY [facility] Last Admin: 05/21/21 10:47 Dose: 100 mg Documented by: Quetiapine Fumarate (Quetiapine 25 Mg Tab) 25 mg PO DAILY [facility] Last Admin: 05/21/21 10:49 Dose: 25 mg Documented by: Sertraline HCl (Sertraline 100 Mg Tab) 150 mg PO DAILY [facility] Last Admin: 05/21/21 10:44 Dose: 150 mg Documented by: Trazodone HCl (Trazodone 100 Mg Tab) 100 mg PO QHS [facility] Last Admin: 05/21/21 22:01 Dose: 100 mg Documented by: Results - Results Labs/Vitals: Laboratory Last Values WBC 4.9 K/mm3 (4.5-11.0) 05/19/21 05:08 RBC 4.10 M/mm3 (3.65-5.03) 05/19/21 05:08 Hgb 13.3 gm/dl (10.1-14.3) 05/19/21 05:08 Hct 38.7 % (30.3-42.9) 05/19/21 05:08 MCV 94 fl (79-97) 05/19/21 05:08 MCH 32 pg (28-32) 05/19/21 05:08 MCHC 34 % (30-34) 05/19/21 05:08 RDW 15.8 % (13.2-15.2) H 05/19/21 05:08 Plt Count 120 K/mm3 (140-440) L 05/19/21 05:08 Lymph % (Auto) 38.2 % (13.4-35.0) H 05/19/21 05:08 [place] % (Auto) 10.8 % (0.0-7.3) H 05/19/21 05:08 Eos % (Auto) 1.0 % (0.0-4.3) 05/19/21 05:08 Baso % (Auto) 0.4 % (0.0-1.8) 05/19/21 05:08 Lymph # (Auto) 1.9 K/mm3 (1.2-5.4) 05/19/21 05:08 [place] # (Auto) 0.5 K/mm3 (0.0-0.8) 05/19/21 05:08 Eos # (Auto) 0.0 K/mm3 (0.0-0.4) 05/19/21 05:08 Baso # (Auto) 0.0 K/mm3 (0.0-0.1) 05/19/21 05:08 Seg Neutrophils % 49.6 % (40.0-70.0) 05/19/21 05:08 Seg Neutrophils # 2.5 K/mm3 (1.8-7.7) 05/19/21 05:08 Sodium 133 mmol/L (137-145) L 05/19/21 05:08 Potassium 3.8 mmol/L (3.6-5.0) 05/19/21 05:08 Chloride 97.3 mmol/L (98-107) L 05/19/21 05:08 Carbon Dioxide 23 mmol/L (22-30) 05/19/21 05:08 Anion Gap 17 mmol/L 05/19/21 05:08 BUN 20 mg/dL (7-17) H 05/19/21 05:08 Creatinine 0.7 mg/dL (0.6-1.2) 05/19/21 05:08 Estimated GFR > 60 ml/min 05/19/21 05:08 BUN/Creatinine Ratio 29 % 05/19/21 05:08 Glucose 141 mg/dL (65-100) H 05/19/21 05:08 POC Glucose 183 mg/dL (70-105) H 05/22/21 07:05 Hemoglobin A1c 6.6 % (4-6) H 05/19/21 05:08 Calcium 8.6 mg/dL (8.4-10.2) 05/19/21 05:08 Total Bilirubin 0.40 mg/dL (0.1-1.2) 05/19/21 05:08 AST 20 units/L (5-40) 05/19/21 05:08 ALT 18 units/L (7-56) 05/19/21 05:08 Alkaline Phosphatase 77 units/L (35-129) 05/19/21 05:08 Total Protein 6.6 g/dL (6.3-8.2) 05/19/21 05:08 Albumin 3.5 g/dL (3.9-5) L 05/19/21 05:08 Albumin/Globulin Ratio 1.1 % 05/19/21 05:08 Triglycerides 106 mg/dL (2-149) 05/19/21 05:08 Cholesterol 150 mg/dL (50-199) 05/19/21 05:08 LDL Cholesterol Direct 61 mg/dL (50-130) 05/19/21 05:08 HDL Cholesterol 64 mg/dL (40-59) H 05/19/21 05:08 Cholesterol/HDL Ratio 2.34 % 05/19/21 05:08 TSH 2.460 mlU/mL (0.270-4.200) 05/19/21 05:08 Valproic Acid 84.6 ug/mL (50-100) 05/20/21 09:31 Last Vital Signs Temp 98.5 F 05/21/21 20:03 Pulse 76 05/21/21 20:03 Resp 16 05/21/21 20:03 BP 136/76 05/21/21 20:03 Pulse Ox 98 05/21/21 20:03
[2021-05-22] MEDS: CARBIDOPA PO SCH ×2 (10:25→21:17)
[2021-05-22] MEDS: hydroCHLOROthiazide 25 MG TAB PO SCH (10:25)
[2021-05-22] MEDS: LEVODOPA PO SCH ×2 (10:25→21:17)
[2021-05-22] MEDS: LISINOPRIL 5 MG TAB PO SCH (10:26)
[2021-05-22] MEDS: QUEtiapine 100 MG TAB PO SCH (10:26)
[2021-05-22] MEDS: METOPROLOL TARTRATE 25 MG TAB PO SCH (10:26)
[2021-05-22] MEDS: SERTRALINE 100 MG TAB PO SCH (10:26)
[2021-05-22] MEDS: QUEtiapine 25 MG TAB PO SCH (10:26)
[2021-05-22] MEDS: CETIRIZINE 10 MG TAB PO SCH (10:26)
--- NOTE | 2021-05-22 13:20 | Progress Note ---
Assessment and Plan - Patient Problems (1) HTN (hypertension) Status: Acute Qualifiers: Hypertension type: primary hypertension Qualified Code(s): I10 - Essential (primary) hypertension Plan to address problem: Monitor blood pressure G shift, continue medical management (2) MDD (major depressive disorder) Status: Acute Plan to address problem: Cognitive behavioral therapy, continue medical management. (3) T2DM (type 2 diabetes mellitus) Status: Chronic Qualifiers: Diabetes mellitus snf insulin use: unspecified snf insulin use status Plan to address problem: Consistent carbohydrate diet, Accu-Chek, insulin protocol, hypoglycemia protocol History Interval history: 56 YO Female with HTN, DM, Bipolar Disorder admitted to [facility] for psychiatric stabilization. Consult placed by Dr. Vergara for medical management. Patient seen and evaluated in her room. No reported nursing events. Patient denies pain. Hospitalist Physical - Constitutional Vitals: Temp Pulse Resp BP Pulse Ox 97.8 F 116 H 18 121/79 95 05/22/21 07:18 05/22/21 10:26 05/22/21 07:18 05/22/21 10:26 05/22/21 07:18 General appearance: Present: no acute distress - EENT Eyes: Present: PERRL ENT: hearing intact - Neck Neck: Present: supple - Respiratory Respiratory: bilateral: CTA - Cardiovascular Rhythm: regular - Extremities Extremities: no ischemia Peripheral Pulses: within normal limits - Abdominal General gastrointestinal: soft, non-tender, non-distended - Integumentary Integumentary: Present: clear, dry - Psychiatric Psychiatric: cooperative - Neurologic Neurologic: CNII-XII intact Results - Labs CBC & Chem 7: 05/19/21 05:08 05/19/21 05:08 Labs: Laboratory Last Values WBC 4.9 K/mm3 (4.5-11.0) 05/19/21 05:08 RBC 4.10 M/mm3 (3.65-5.03) 05/19/21 05:08 Hgb 13.3 gm/dl (10.1-14.3) 05/19/21 05:08 Hct 38.7 % (30.3-42.9) 05/19/21 05:08 MCV 94 fl (79-97) 05/19/21 05:08 MCH 32 pg (28-32) 05/19/21 05:08 MCHC 34 % (30-34) 05/19/21 05:08 RDW 15.8 % (13.2-15.2) H 05/19/21 05:08 Plt Count 120 K/mm3 (140-440) L 05/19/21 05:08 Lymph % (Auto) 38.2 % (13.4-35.0) H 05/19/21 05:08 [place] % (Auto) 10.8 % (0.0-7.3) H 05/19/21 05:08 Eos % (Auto) 1.0 % (0.0-4.3) 05/19/21 05:08 Baso % (Auto) 0.4 % (0.0-1.8) 05/19/21 05:08 Lymph # (Auto) 1.9 K/mm3 (1.2-5.4) 05/19/21 05:08 [place] # (Auto) 0.5 K/mm3 (0.0-0.8) 05/19/21 05:08 Eos # (Auto) 0.0 K/mm3 (0.0-0.4) 05/19/21 05:08 Baso # (Auto) 0.0 K/mm3 (0.0-0.1) 05/19/21 05:08 Seg Neutrophils % 49.6 % (40.0-70.0) 05/19/21 05:08 Seg Neutrophils # 2.5 K/mm3 (1.8-7.7) 05/19/21 05:08 Sodium 133 mmol/L (137-145) L 05/19/21 05:08 Potassium 3.8 mmol/L (3.6-5.0) 05/19/21 05:08 Chloride 97.3 mmol/L (98-107) L 05/19/21 05:08 Carbon Dioxide 23 mmol/L (22-30) 05/19/21 05:08 Anion Gap 17 mmol/L 05/19/21 05:08 BUN 20 mg/dL (7-17) H 05/19/21 05:08 Creatinine 0.7 mg/dL (0.6-1.2) 05/19/21 05:08 Estimated GFR > 60 ml/min 05/19/21 05:08 BUN/Creatinine Ratio 29 % 05/19/21 05:08 Glucose 141 mg/dL (65-100) H 05/19/21 05:08 POC Glucose 181 mg/dL (70-105) H 05/22/21 11:20 Hemoglobin A1c 6.6 % (4-6) H 05/19/21 05:08 Calcium 8.6 mg/dL (8.4-10.2) 05/19/21 05:08 Total Bilirubin 0.40 mg/dL (0.1-1.2) 05/19/21 05:08 AST 20 units/L (5-40) 05/19/21 05:08 ALT 18 units/L (7-56) 05/19/21 05:08 Alkaline Phosphatase 77 units/L (35-129) 05/19/21 05:08 Total Protein 6.6 g/dL (6.3-8.2) 05/19/21 05:08 Albumin 3.5 g/dL (3.9-5) L 05/19/21 05:08 Albumin/Globulin Ratio 1.1 % 05/19/21 05:08 Triglycerides 106 mg/dL (2-149) 05/19/21 05:08 Cholesterol 150 mg/dL (50-199) 05/19/21 05:08 LDL Cholesterol Direct 61 mg/dL (50-130) 05/19/21 05:08 HDL Cholesterol 64 mg/dL (40-59) H 05/19/21 05:08 Cholesterol/HDL Ratio 2.34 % 05/19/21 05:08 TSH 2.460 mlU/mL (0.270-4.200) 05/19/21 05:08 Valproic Acid 84.6 ug/mL (50-100) 05/20/21 09:31 [place]/IV: Voiding Method Toilet Active Medications - Current Medications Current Medications: Generic Name Dose Route Start Last Admin Trade Name Freq PRN Reason Stop Dose Admin Atorvastatin Calcium 20 mg 05/19/21 22:00 05/21/21 22:01 Atorvastatin 20 Mg Tab PO 20 mg HS [facility] Administration Carbidopa/Levodopa 1 each 05/19/21 10:00 05/22/21 10:25 Carbidopa/Levodopa 10-100 Mg Tab PO 1 each BID [facility] Administration Cetirizine HCl 10 mg 05/19/21 10:00 05/22/21 10:26 Cetirizine 10 Mg Tab PO 10 mg DAILY [facility] Administration Dextrose 50 ml 05/20/21 11:58 Dextrose 50% In Water (25gm) 50 Ml Syringe IV Q30MIN PRN Hypoglycemia Protocol Diphenhydramine HCl 25 mg 05/19/21 22:00 05/21/21 21:59 Diphenhydramine 25 Mg Cap PO 25 mg HS [facility] Administration Divalproex Sodium 1,500 mg 05/19/21 22:00 05/21/21 22:00 Divalproex Er 500 Mg Tab PO 1,500 mg HS [facility] Administration Hydrochlorothiazide 25 mg 05/19/21 10:00 05/22/21 10:25 Hydrochlorothiazide 25 Mg Tab PO 25 mg DAILY [facility] Administration Insulin Human Lispro 0 unit 05/20/21 16:30 05/22/21 12:43 Insulin Lispro 100 Unit/Ml SUB-Q 2 unit ACHS [facility] Administration Protocol Lisinopril 5 mg 05/19/21 10:00 05/22/21 10:26 Lisinopril 5 Mg Tab PO 5 mg DAILY [facility] Administration Metoprolol Tartrate 25 mg 05/19/21 10:00 05/22/21 10:26 Metoprolol Tartrate 25 Mg Tab PO 25 mg DAILY [facility] Administration Mirtazapine 30 mg 05/19/21 22:00 05/21/21 22:01 Mirtazapine 30 Mg Tab PO 30 mg HS [facility] Administration Quetiapine Fumarate 400 mg 05/19/21 22:00 05/21/21 22:02 Quetiapine 200 Mg Tab PO 400 mg HS [facility] Administration Quetiapine Fumarate 100 mg 05/21/21 10:00 05/22/21 10:26 Quetiapine 100 Mg Tab PO 100 mg DAILY [facility] Administration Quetiapine Fumarate 25 mg 05/21/21 10:00 05/22/21 10:26 Quetiapine 25 Mg Tab PO 25 mg DAILY [facility] Administration Sertraline HCl 150 mg 05/19/21 10:00 05/22/21 10:26 Sertraline 100 Mg Tab PO 150 mg DAILY [facility] Administration Trazodone HCl 100 mg 05/19/21 22:00 05/21/21 22:01 Trazodone 100 Mg Tab PO 100 mg QHS [facility] Administration
[2021-05-22] MEDS: diphenhydrAMINE 25 MG CAP PO SCH (21:15)
[2021-05-22] MEDS: DIVALPROEX ER 500 MG TAB PO SCH (21:15)
[2021-05-22] MEDS: MIRTAZAPINE 30 MG TAB PO SCH (21:16)
[2021-05-22] MEDS: traZODone 100 MG TAB PO SCH (21:16)
[2021-05-22] MEDS: QUEtiapine 200 MG TAB PO SCH (21:17)
[2021-05-23] MEDS: INSULIN LISPRO 100 UNIT/ML SUB-Q SCH ×4 (08:03→21:21)
[2021-05-23] MEDS: QUEtiapine 100 MG TAB PO SCH (09:22)
[2021-05-23] MEDS: CARBIDOPA PO SCH ×2 (09:22→21:20)
[2021-05-23] MEDS: hydroCHLOROthiazide 25 MG TAB PO SCH (09:22)
[2021-05-23] MEDS: QUEtiapine 25 MG TAB PO SCH (09:22)
[2021-05-23] MEDS: SERTRALINE 100 MG TAB PO SCH (09:22)
[2021-05-23] MEDS: LEVODOPA PO SCH ×2 (09:22→21:20)
[2021-05-23] MEDS: CETIRIZINE 10 MG TAB PO SCH (09:22)
[2021-05-23 09:23] VITALS: BP 115/69
[2021-05-23] MEDS: METOPROLOL TARTRATE 25 MG TAB PO SCH ×2 (09:23→09:27)
[2021-05-23] MEDS: LISINOPRIL 5 MG TAB PO SCH (09:24)
--- NOTE | 2021-05-23 10:48 | Discharge Summary ---
Providers - Providers Date of Admission: 05/19/21 01:38 Date of discharge: 05/23/21 Attending physician: RIMA BANSAL MD 05/18/21 23:49 Consult to Physician [CONS] Routine Comment: Consulting Provider: FELISHA SANDHU Physician Instructions: Reason For Exam: health and physical Primary care physician: [employer] [facility]PER Hospitalization Reason for admission: depression Admitting Diagnosis: F25.9 - SCHIZOAFFECTIVE DISORDER, UNSPECIFIED Condition: Stable Hospital course: The patient was provided inpatient psychiatric treatment with safe and supportive care, medication adjustment, adverse effect monitoring, medical evaluations, medical treatments, assessment and psycho-education. The patient's mood, cognition, behavior, moral support are improved and stabilized. St the time of discharge, the patient had no endangering behavior and no debilitating adverse effects. The patient agreed on potential consequences of no treatment and gave informed consent. 05/19 Aletha Sheridan is a 56y/o female patient with a history of bipolar disorder and schizoaffective disorder. I first evaluated this patient in the ER. Today she is sitting eating breakfast. She is hesitant to answer questions. She endorses SI. She says "because my omelet isn't right." The patient says "my mood is just not good today." She denies hallucinations. 05/20 The patient was seen today. She is in the dayroom. She appears drowsy. The patient does express being tired. She says she doesn't like all the food. When asking about SI/HI, the patient says "yea, suicidal, but I'll probably be like that for about a week." He denies hallucinations. 05/21 The patient was seen today. Her affect is restricted. She says "I can't wait to get home so I can buy groceries and so on." The patient says she feels better. Despite this she appears down. She says "sometimes" when asked about hallucinations. When asked was she still suicidal she nods her head "yes." 05/22 The patient was seen today. She is sitting in the dayroom. She says she is hearing voices and her head hurts. When asked what were the voices she says "I don't know." The patient also endorses suicidal thoughts without a plan. 09/29 The patient was seen today. She has vague symptoms. She says she has a headache. I offered her tylenol but she says tylenol typically doesn't work for her headache. I asked her how does she feel mentally. The patient says "okay, I guess." She then asks, "am I going [facility] to the [facility]." She initially denies SI, but then says "because I didn't get to visit my family last year for [place], that makes me feel suicidal sometimes." She denies hallucinations of any kind. Disposition: 01 HOME / SELF CARE / HOMELESS Time spent for discharge: 35 Allergies/Adverse Reactions: Allergies codeine Allergy (Verified 05/18/21 23:48) Unknown Penicillins Allergy (Verified 05/18/21 23:48) Unknown Vital Signs: Last Vital Signs Temp 98.7 F 05/23/21 07:59 Pulse 107 H 05/23/21 09:24 Resp 97 H 05/23/21 07:59 BP 115/69 05/23/21 09:27 Pulse Ox 95 05/23/21 09:21 Last Lab: Laboratory Last Values WBC 4.9 K/mm3 (4.5-11.0) 05/19/21 05:08 RBC 4.10 M/mm3 (3.65-5.03) 05/19/21 05:08 Hgb 13.3 gm/dl (10.1-14.3) 05/19/21 05:08 Hct 38.7 % (30.3-42.9) 05/19/21 05:08 MCV 94 fl (79-97) 05/19/21 05:08 MCH 32 pg (28-32) 05/19/21 05:08 MCHC 34 % (30-34) 05/19/21 05:08 RDW 15.8 % (13.2-15.2) H 05/19/21 05:08 Plt Count 120 K/mm3 (140-440) L 05/19/21 05:08 Lymph % (Auto) 38.2 % (13.4-35.0) H 05/19/21 05:08 Crenshaw % (Auto) 10.8 % (0.0-7.3) H 05/19/21 05:08 Eos % (Auto) 1.0 % (0.0-4.3) 05/19/21 05:08 Baso % (Auto) 0.4 % (0.0-1.8) 05/19/21 05:08 Lymph # (Auto) 1.9 K/mm3 (1.2-5.4) 05/19/21 05:08 Crenshaw # (Auto) 0.5 K/mm3 (0.0-0.8) 05/19/21 05:08 Eos # (Auto) 0.0 K/mm3 (0.0-0.4) 05/19/21 05:08 Baso # (Auto) 0.0 K/mm3 (0.0-0.1) 05/19/21 05:08 Seg Neutrophils % 49.6 % (40.0-70.0) 05/19/21 05:08 Seg Neutrophils # 2.5 K/mm3 (1.8-7.7) 05/19/21 05:08 Sodium 133 mmol/L (137-145) L 05/19/21 05:08 Potassium 3.8 mmol/L (3.6-5.0) 05/19/21 05:08 Chloride 97.3 mmol/L (98-107) L 05/19/21 05:08 Carbon Dioxide 23 mmol/L (22-30) 05/19/21 05:08 Anion Gap 17 mmol/L 05/19/21 05:08 BUN 20 mg/dL (7-17) H 05/19/21 05:08 Creatinine 0.7 mg/dL (0.6-1.2) 05/19/21 05:08 Estimated GFR > 60 ml/min 05/19/21 05:08 BUN/Creatinine Ratio 29 % 05/19/21 05:08 Glucose 141 mg/dL (65-100) H 05/19/21 05:08 POC Glucose 131 mg/dL (70-105) H 05/23/21 06:33 Hemoglobin A1c 6.6 % (4-6) H 05/19/21 05:08 Calcium 8.6 mg/dL (8.4-10.2) 05/19/21 05:08 Total Bilirubin 0.40 mg/dL (0.1-1.2) 05/19/21 05:08 AST 20 units/L (5-40) 05/19/21 05:08 ALT 18 units/L (7-56) 05/19/21 05:08 Alkaline Phosphatase 77 units/L (35-129) 05/19/21 05:08 Total Protein 6.6 g/dL (6.3-8.2) 05/19/21 05:08 Albumin 3.5 g/dL (3.9-5) L 05/19/21 05:08 Albumin/Globulin Ratio 1.1 % 05/19/21 05:08 Triglycerides 106 mg/dL (2-149) 05/19/21 05:08 Cholesterol 150 mg/dL (50-199) 05/19/21 05:08 LDL Cholesterol Direct 61 mg/dL (50-130) 05/19/21 05:08 HDL Cholesterol 64 mg/dL (40-59) H 05/19/21 05:08 Cholesterol/HDL Ratio 2.34 % 05/19/21 05:08 TSH 2.460 mlU/mL (0.270-4.200) 05/19/21 05:08 Valproic Acid 84.6 ug/mL (50-100) 05/20/21 09:31 Core Measure Documentation - Palliative Care Palliative Care/ Comfort Measures: Not Applicable - Core Measures Any of the following diagnoses?: none Exam - Constitutional Vitals: Temp Pulse Resp BP Pulse Ox 98.7 F 107 H 97 H 115/69 95 05/23/21 07:59 05/23/21 09:24 05/23/21 07:59 05/23/21 09:27 05/23/21 09:21 General appearance: Present: no acute distress - EENT Eyes: Present: PERRL, EOM intact ENT: hearing intact, clear oral mucosa - Neck Neck: Present: supple, normal ROM - Respiratory Respiratory effort: normal Plan Activity: advance as tolerated Weight Bearing Status: Weight Bear as Tolerated Care Plan Goals: Maintain good and stable mental health Plan of Treatment: The patient should be compliant with medications, not to use drugs, and not to drink alcohol. The patient understands that if suicidal ideas, homicidal ideas or any endangering feeling arise, the patient should seek assistance including, but not limited to crisis hotline, and emergency room. Assessment: Schizoaffective Disorder Follow up with: PRIMARY CARE, [Primary Care Provider] - 7 Days Prescriptions: traZODone [Desyrel] 100 mg PO QHS #30 QUEtiapine [SEROquel] 100 mg PO DAILY #30 tablet QUEtiapine [SEROquel] 25 mg PO DAILY #30 tablet Sertraline HCl [Zoloft] 150 mg PO DAILY #45
[2021-05-23] MEDS: diphenhydrAMINE 25 MG CAP PO SCH (21:20)
[2021-05-23] MEDS: DIVALPROEX ER 500 MG TAB PO SCH (21:20)
[2021-05-23] MEDS: QUEtiapine 200 MG TAB PO SCH (21:20)
[2021-05-23] MEDS: MIRTAZAPINE 30 MG TAB PO SCH (21:20)
[2021-05-23] MEDS: traZODone 100 MG TAB PO SCH (21:20)
== END 2021-05-23 21:40 | disposition home or self-care (01) | DRG 885 ==
LOC: 3A 20:28 → UNDOADMIN 20:28 → MERGE 05-19 01:38 → 5A 05-19 01:38
PROVIDERS: ADMIT Psychiatry & Neurology Psychiatry; ATTEND Psychiatry & Neurology Psychiatry
DX: F31.9 Bipolar disorder, unspecified (principal); F25.9 Schizoaffective disorder, unspecified; Z88.6 Allergy status to analgesic agent; Z88.0 Allergy status to penicillin; R45.851 Suicidal ideations
CPT/HCPCS: 36415; 80053; 80061; 80164; 82962; 83036; 84443; 85025; G0378; J1815